=== PATIENT | male | born 1965 | race African-American/Black ===

== ENCOUNTER 2017-06-07 07:08 | Emergency (ER) | payer MEDICARE, MEDICAID ==
[2017-06-07 07:32] VITALS: BP 117/83
--- NOTE | 2017-06-07 09:35 | UC ---
Denise Lynn Jason, scribed for [facility] on 06/07/17 at 0809 . Complaint Male HPI - HPI Summary HPI Summary: In Room Note: This patient is a 51 year old M presenting to [facility] with a chief complaint of a pelvic bump since 3 years ago. The patient rates the pain 0/10 in severity. Symptoms aggravated by nothing. Symptoms alleviated by nothing. Patient denies pain, and N/V/D. Physicians Note: Vital signs stable, afebrile, pulse ox 100. Visit history: substance abuse issues, bipolar disorder, anemia. No known allergies. No known allergies. No prescription medications. Nurses Note: HAS A VISIBLE AND PALPABLE PUFFY LUMP ON HIS LOWER LEFT GROIN THAT HAS BEEN THERE FOR 2-3 YEARS THAT COMES AND GOES. NOT PAINFUL. DOES A LOT OF WALKING AND IS TRYING TO GET HEALTHY. WAS A FORMER CRACK ADDICT. LAST TIME HE USED WAS 6 YEARS AGO. ALSO FORMER MARUIJUA USER - LAST TIME WAS [address] NANI CHEN IS HIS PRIMARY CARE DOCTOR. WAS ON RESPIRDAL FOR DEPRESSION, SCHIZO- DISORDER BUT NO LONGER TAKES IT. HE IS ON OUTPATIENT TREATMENT FOR THIS. 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 - History of Current Complaint Chief Complaint: UCSkin Stated Complaint: SOFT TISUUE Time Seen by Provider: 06/07/17 07:25 Hx Obtained From: Patient Onset/Duration: Gradual Onset, Lasting Weeks - since 3 years, Still Present Timing: Constant Pain Intensity: 0 Pain Scale Used: 0-10 Numeric Location: Other - pelvic area Aggravating Factor(s): Nothing Alleviating Factor(s): Nothing Associated Signs And Symptoms: Positive: Negative - pelvic pain, N/V/D - Allergies/Home Medications Allergies/Adverse Reactions: Allergies Allergy/AdvReac Type Severity Reaction Status Date / Time No Known Allergies Allergy Verified 06/07/17 07:14 Home Medications: Home Medications NK [No Home Medications Reported] 06/07/17 [History Confirmed 06/07/17] PMH/Surg Hx/FS Hx/Imm Hx Previously Healthy: No Psychological History: Bipolar Disorder Other History Of: Negative For: Anticoagulant Therapy - Surgical History Surgical History: Yes Surgery Procedure, Year, and Place: LEFT KNEE SURGERY. APPENDICITIS. BROKEN JAW REPAIR - Family History Known Family History: Positive: Diabetes - in grandmother - Social History Alcohol Use: None Substance Use Type: None, Marijuana Substance Use Comment - Amount & Last Used: FORMER CRACK USER - 6 YEARS AGO. MARIJUANAN USE LASTN TIME WAS 2 YEARS AGO Smoking Status (MU): Former Smoker Type: Cigarettes Length of Time of Smoking/Using Tobacco: SMOKED WHEN HE WASN 8 YEARS OF AGE Household Exposure Type: Cigarettes - Immunization History Most Recent Influenza Vaccination: n/a Most Recent Tetanus Shot: "in the " Most Recent Pneumonia Vaccination: never Review of Systems Gastrointestinal: Negative - nausea, vomiting, diarrhea Genitourinary: Negative - pelvi pain, Other - pelvic All Other Systems Reviewed And Are Negative: Yes Physical Exam - Summary Physical Exam Summary: Appearance: The patient is well-appearing, is in no pain distress, and is well- nourished. Eyes: Conjunctiva are clear. ENT: The hearing is grossly normal, the pharynx is normal, and the TMs are normal. There is no muffled or hoarse voice. Neck: The neck is supple and there is no lymphadenopathy. Respiratory: The chest is nontender. The lungs are clear, there are normal breath sounds, and there is no respiratory distress. Cardiovascular: Heart is regular rate and rhythm. There is no murmur. Abdomen: The abdomen is soft and nontender. There is no organomegaly. Abd exam shows a well healed right lower quadrant, scar from appendectomy. There are no masses. There is a 3.5 cm soft, swelling above the medial 1/3rd of the inguinal ligament on the left. The swelling is non-tender to palpation and reducible, but returns. With patient supine, the left supra inguinal swelling disappears. When the patient sits up there is no appearance of this swelling. Testicular Exam: Examination of the testicles is normal, and shows no indirect hernias on each side. No other inguinal adenopathy noted. Bowel sounds: present Musculoskeletal: Strength is intact. The patient moves all extremities. Neurological: The patient is alert. Psychological: The patient displays age appropriate behavior Skin: Negative for rashes Triage Information Reviewed: Yes Vital Signs: Initial Vital Signs Temp 97.9 F 06/07/17 07:15 Pulse 68 06/07/17 07:15 Resp 16 06/07/17 07:15 BP 117/83 06/07/17 07:15 Pulse Ox 100 03/25/18 07:15 Vital Signs Reviewed: Yes Complaint Male Course/Dx - Course Course Of Treatment: 51 year old male with swelling in the area of the left inguinal area. This swelling was easily reducible, non- tender, and had a duration of 3 years. My differential is a lipoma vs a direct hernia. I spoke to the patient at length and told him I would write down my assessment and she should return to his PCP for evaluation and treatment as needed. Diagnosis: swelling, left lower abdomen: direct hernia vs. other. Patient is Urgent/ Emergent. BP elevated due to current condition w/o HTN in past medical history. Medications have been included in the original chart and reviewed. - Differential Dx/Diagnosis Provider Diagnoses: left randall-inguinal swelling: hernia vs. other Discharge - Sign-Out/Discharge Documenting (check all that apply): Discharge - Discharge Plan Condition: Stable Disposition: HOME Patient Education Materials: Inguinal Hernia (ED) Referrals: Nani Chen MD [Primary Care Provider] - Additional Instructions: WE DISCUSSED: You have a swelling in your groin area. This could be a hernia or just a bit of tissue or fat. Re-check with your doctor to review your condition and decide if any further tests or treatment need to be done. Call us for any increased pain or temperature. - Billing Disposition and Condition Condition: STABLE Disposition: HOME The documentation as recorded by the Denise downs Jason accurately reflects the service I personally performed and the decisions made by me, Chaim Ambrocio MD.
== END 2017-06-07 08:03 | disposition home or self-care (01) ==
LOC: UCEAST 07:08
DX: R19.04 Left lower quadrant abdominal swelling, mass and lump (principal); F31.9 Bipolar disorder, unspecified; Z87.891 Personal history of nicotine dependence
CPT/HCPCS: 99211; G0463

== ENCOUNTER 2017-07-20 09:21 | Emergency (ER) | payer MEDICARE, MEDICAID ==
[2017-07-20 09:51] VITALS: BP 115/83
--- NOTE | 2017-07-20 10:01 | UC ---
Skin Complaint HPI - HPI Summary HPI Summary: Pt presents with pain and swelling to the nail of his left 4th finger that started yesterday. Has been mildly draining at times. Denies fever or chills. - History of Current Complaint Chief Complaint: UCUpperExtremity Time Seen by Provider: 07/20/17 09:58 Stated Complaint: SWOLLEN FINGER TIP Hx Obtained From: Patient Onset/Duration: Sudden Onset Skin Exposure Onset/Duration: Days Ago Timing: Constant Onset Severity: Mild Current Severity: Mild Pain Intensity: 2 Pain Scale Used: 0-10 Numeric - Allergy/Home Medications Allergies/Adverse Reactions: Allergies Allergy/AdvReac Type Severity Reaction Status Date / Time No Known Allergies Allergy Verified 07/20/17 09:45 Review of Systems Constitutional: Negative Skin: Other - Finger redness and pain Respiratory: Negative Cardiovascular: Negative Neurovascular: Negative Musculoskeletal: Negative Neurological: Negative Psychological: Negative All Other Systems Reviewed And Are Negative: Yes PMH/Surg Hx/FS Hx/Imm Hx - Additional Past Medical History Additional PMH: None Other History Of: Negative For: Anticoagulant Therapy - Surgical History Surgical History: Yes Surgery Procedure, Year, and Place: LEFT KNEE SURGERY. APPENDICITIS. BROKEN JAW REPAIR - Family History Known Family History: Positive: Diabetes - in grandmother - Social History Lives: Alone Alcohol Use: None Substance Use Type: None Substance Use Comment - Amount & Last Used: FORMER CRACK USER - 6 YEARS AGO. Smoking Status (MU): Former Smoker Type: Cigarettes Length of Time of Smoking/Using Tobacco: SMOKED WHEN HE WASN 8 YEARS OF AGE Household Exposure Type: Cigarettes - Immunization History Most Recent Influenza Vaccination: n/a Most Recent Tetanus Shot: "in the " Most Recent Pneumonia Vaccination: never Physical Exam - Summary Physical Exam Summary: GENERAL: NAD. WDWN. No pain distress. SKIN: Left 4th finger: on the radial aspect of the nail-skin fold there is mild erythema, edema, and tenderness. Scant clear and yellow drainage. No streaking or bleeding. NECK: Supple. Nontender. No lymphadenopathy. CHEST: No accessory muscle use. Breathing comfortably and in no distress. CV: RRR. Without m/r/g. NEURO: Alert. CN II-XII grossly intact. PSYCH: Age appropriate behavior. Triage Information Reviewed: Yes Vital Signs: Initial Vital Signs Temp 97.9 F 07/20/17 09:45 Pulse 71 07/20/17 09:45 Resp 18 07/20/17 09:45 BP 115/83 07/20/17 09:45 Pulse Ox 100 07/20/17 09:45 Course/Dx - Course Course Of Treatment: Left 4th finger paronychia. Keflex. - Diagnoses Provider Diagnoses: left 4th finger paronychia Discharge - Sign-Out/Discharge Documenting (check all that apply): Discharge/Admit/Transfer - Discharge Plan Condition: Stable Disposition: HOME Prescriptions: Cephalexin CAP* [Keflex CAP*] 250 mg PO BID #10 cap Patient Education Materials: Paronychia (ED) Referrals: Nani Guerra MD [Primary Care Provider] - Additional Instructions: If you develop a fever, shortness of breath, chest pain, new or worsening symptoms - please call your PCP or go to the ED. - Billing Disposition and Condition Condition: STABLE Disposition: HOME
== END 2017-07-20 10:22 | disposition home or self-care (01) ==
LOC: UCEAST 09:21
DX: L03.012 Cellulitis of left finger (principal); Z87.891 Personal history of nicotine dependence
CPT/HCPCS: 99212; G0463

== ENCOUNTER 2017-08-13 14:42 | Emergency (ER) | payer MEDICARE, MEDICAID ==
[2017-08-13 14:55] VITALS: BP 127/72
--- NOTE | 2017-08-13 15:17 | UC ---
Skin Complaint HPI - HPI Summary HPI Summary: 51 yo male presents with left 4th digit ?infection. I saw him for this same issue about 1 month ago. Denies redness, drainage, pain, swelling, fever, or chills. - History of Current Complaint Chief Complaint: UCSkin Time Seen by Provider: 08/13/17 15:17 Stated Complaint: L RINGER FINGER Hx Obtained From: Patient Current Severity: None Pain Intensity: 0 Pain Scale Used: 0-10 Numeric - Allergy/Home Medications Allergies/Adverse Reactions: Allergies Allergy/AdvReac Type Severity Reaction Status Date / Time No Known Allergies Allergy Verified 08/13/17 14:55 Home Medications: Home Medications NK [No Home Medications Reported] 08/13/17 [History Confirmed 08/13/17] Review of Systems Constitutional: Negative Skin: Other - Left 4th digit ingrown nail Respiratory: Negative Cardiovascular: Negative Neurovascular: Negative Neurological: Negative Psychological: Negative All Other Systems Reviewed And Are Negative: Yes PMH/Surg Hx/FS Hx/Imm Hx - Additional Past Medical History Additional PMH: None Previously Healthy: Yes Other History Of: Negative For: Anticoagulant Therapy - Surgical History Surgical History: Yes Surgery Procedure, Year, and Place: LEFT KNEE SURGERY. APPENDICITIS. BROKEN JAW REPAIR - Family History Known Family History: Positive: Diabetes - in grandmother - Social History Lives: Alone Alcohol Use: None Substance Use Type: None Substance Use Comment - Amount & Last Used: FORMER CRACK USER - 6 YEARS AGO. Smoking Status (MU): Former Smoker Type: Cigarettes Length of Time of Smoking/Using Tobacco: SMOKED WHEN HE WASN 8 YEARS OF AGE Household Exposure Type: Cigarettes - Immunization History Most Recent Influenza Vaccination: n/a Most Recent Tetanus Shot: "in the " Most Recent Pneumonia Vaccination: never Physical Exam - Summary Physical Exam Summary: GENERAL: NAD. WDWN. No pain distress. SKIN: Left 4th digit: Nail appears normal. No erythema, edema, or tenderness. No streaking, bleeding, or drainage. NECK: Supple. Nontender. No lymphadenopathy. CHEST: No accessory muscle use. Breathing comfortably and in no distress. CV: RRR. Without m/r/g. NEURO: Alert. CN II-XII grossly intact. PSYCH: Age appropriate behavior. Triage Information Reviewed: Yes Vital Signs: Initial Vital Signs Temp 98.6 F 08/13/17 14:50 Pulse 76 08/13/17 14:50 Resp 18 08/13/17 14:50 BP 127/72 08/13/17 14:50 Pulse Ox 100 08/13/17 14:50 Course/Dx - Course Course Of Treatment: Left 4th digit appears normal. No treatment at this time. - Diagnoses Provider Diagnoses: Left 4th digit ingrown nail Discharge - Sign-Out/Discharge Documenting (check all that apply): Discharge/Admit/Transfer - Discharge Plan Condition: Stable Disposition: HOME Referrals: Nani Guerra MD [Primary Care Provider] - Additional Instructions: If you develop a fever, shortness of breath, chest pain, new or worsening symptoms - please call your PCP or go to the ED. - Billing Disposition and Condition Condition: STABLE Disposition: HOME
== END 2017-08-13 15:30 | disposition home or self-care (01) ==
LOC: UCEAST 14:42
DX: L60.0 Ingrowing nail (principal); Z83.3 Family history of diabetes mellitus; Z87.891 Personal history of nicotine dependence
CPT/HCPCS: 99201; G0463

== ENCOUNTER 2018-05-04 07:18 | Emergency (ER) | payer MEDICARE, MEDICAID ==
[2018-05-04 07:31] VITALS: BP 118/75
--- NOTE | 2018-05-04 07:56 | UC ---
Head Injury HPI - HPI Summary HPI Summary: SLIPPED AND FELL ABOUT A WEEK AGO. STRUCK RIGHT FOREHEAD ON THE GROUND. PT UNCLEAR IF LOC OR NOT. HAS H/O MENTAL ILLNESS - NOT CURRENTLY TAKING MEDS. STATES HE WAS CONCERNED ABOUT HOW FAST THE BUMP ON HIS HEAD WENT AWAY. DENIES BOLTON , DIZZINESS, NAUSEA, VISUAL DISTURBANCE. - History Of Current Complaint Chief Complaint: UCHeadInjury Stated Complaint: HEAD INJURY Time Seen by Provider: 05/04/18 07:36 Hx Obtained From: Patient Onset/Duration: Sudden Onset, Lasting Days, Resolved Severity Currently: None Severity Initially: Moderate Pain Intensity: 0 Pain Scale Used: 0-10 Numeric Aggravating Factor(s): Nothing Alleviating Factor(s): Nothing Associated Signs And Symptoms: Negative: Confusion, Neck Pain, Nausea, Vomiting - Allergies/Home Medications Allergies/Adverse Reactions: Allergies Allergy/AdvReac Type Severity Reaction Status Date / Time No Known Allergies Allergy Verified 05/04/18 07:31 PMH/Surg Hx/FS Hx/Imm Hx Endocrine History: Diabetes Other Psychological History: "MENTAL ILLNESS" Other History Of: Negative For: Anticoagulant Therapy - Surgical History Surgical History: Yes Surgery Procedure, Year, and Place: LEFT KNEE SURGERY. APPENDICITIS. BROKEN JAW REPAIR - Family History Known Family History: Positive: Diabetes - in grandmother - Social History Alcohol Use: None Substance Use Type: None Substance Use Comment - Amount & Last Used: FORMER CRACK USER - 6 YEARS AGO. Smoking Status (MU): Former Smoker Type: Cigarettes Length of Time of Smoking/Using Tobacco: SMOKED WHEN HE WASN 8 YEARS OF AGE Household Exposure Type: Cigarettes - Immunization History Most Recent Influenza Vaccination: n/a Most Recent Tetanus Shot: "in the " Most Recent Pneumonia Vaccination: never Review of Systems All Other Systems Reviewed And Are Negative: Yes Constitutional: Positive: Negative Skin: Positive: Other - DISCOLORATION RIGHT FOREHEAD Respiratory: Positive: Negative Cardiovascular: Positive: Negative Gastrointestinal: Positive: Negative Musculoskeletal: Positive: Negative Neurological: Positive: Negative Physical Exam Triage Information Reviewed: Yes Appearance: Well-Appearing, No Pain Distress Vital Signs: Initial Vital Signs Temp 98.1 F 05/04/18 07:26 Pulse 88 05/04/18 07:26 Resp 18 05/04/18 07:26 BP 118/75 05/04/18 07:26 Pulse Ox 100 05/04/18 07:26 Vital Signs Reviewed: Yes Eyes: Positive: Conjunctiva Clear, Other: - PERRL, EOMI ENT: Positive: Hearing grossly normal, Pharynx normal, TMs normal Neck: Positive: Supple, Nontender, No Lymphadenopathy Respiratory Exam: Normal Cardiovascular Exam: Normal Abdomen Description: Positive: Soft Musculoskeletal: Positive: No Edema Neurological: Positive: Alert, Other: - CN II-XII GROSSLY INTACT BILATERALLY. RAPID ALTERNATING MOVEMENTS INTACT. NEG PRONATOR DRIFT. NEG ROMBERG. 5/5 STRENGTH. HEEL TO GARCIA INTACT BILATERALLY. TANDEM GAIT INTACT. FINGER TO NOSE INTACT. Psychological: Positive: Age Appropriate Behavior Skin: Positive: Other - QUARTER SIZED HYPERPIGMENTED AREA OF SKIN AT SITE OF REPORTED IMPACT RIGHT FOREHEAD. NOT TENDER. NO DEFORMITY. Negative: Rashes Head Injury Course/Dx - Course Course Of Treatment: NORMAL EXAM. PT DENIES ANY RESIDUAL SYMPTOMS. STATES HE WAS JUST CONCERNED WITH HOW QUICKLY THE BUMP ON HIS HEAD WENT AWAY. STATES HE HAD A SIMILAR BUMP ON HIS HEAD YEARS AGO AND IT STAYED MUCH LONGER SO HE WAS CONCERNED THAT THIS ONE WENT AWAY TOO FAST. NO INDICATION FOR ACUTE INTERVENTION TODAY. TO ER IF SX WORSEN. - Differential Dx/Diagnosis Provider Diagnosis: Head injury Discharge - Sign-Out/Discharge Documenting (check all that apply): Patient Departure All imaging exams completed and their final reports reviewed: No Studies - Discharge Plan Condition: Stable Disposition: HOME Patient Education Materials: Head Injury (ED) Referrals: Nani Guerra MD [Primary Care Provider] - If Needed Additional Instructions: PHYSICAL AND NEURO EXAM TODAY UNREMARKABLE. YOU SEEM TO HAVE RECOVERED FROM YOUR HEAD INJURY. NO INDICATION FOR ANY ACUTE INTERVENTION TODAY. GO TO THE ED WITHOUT FAIL IF YOU DEVELOP UNEQUAL PUPILS, VISUAL DISTURBANCE, GAIT INSTABILITY, SPEECH DIFFICULTY, NAUSEA/VOMITING, WORSENING HEADACHE, DIZZINESS, CONFUSION, WEAKNESS OR ANY OTHER CONCERNING SYMPTOMS. - Billing Disposition and Condition Condition: STABLE Disposition: Home
== END 2018-05-04 07:50 | disposition home or self-care (01) ==
LOC: UCEAST 07:18
DX: S09.90XA Unspecified injury of head, initial encounter (principal); Z87.891 Personal history of nicotine dependence; E11.9 Type 2 diabetes mellitus without complications; W22.8XXA Striking against or struck by other objects, initial encounter; Y92.9 Unspecified place or not applicable
CPT/HCPCS: 99211; G0463

== ENCOUNTER 2018-05-05 12:23 | Inpatient (IN) | payer MEDICARE, MEDICAID ==
[2018-05-05] MEDS ORDERED: Nicotine Inhaler* 10 MG AMP INH PRN (12:36)
[2018-05-05] MEDS ORDERED: LORazepam TAB(*) 1 MG PO PRN ×2 (12:36→14:48)
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
[2018-05-05 13:02] LABS: Urine Appearance Clear; Urine Bilirubin Negative (Negative); Urine Blood Negative (Negative); Urine Color Yellow; Urine Glucose Negative (Negative); Urine Ketones Negative (Negative); Urine Nitrite Negative (Negative); Urine Protein Negative (Negative); Urine Specific Gravity 1.036 (1.010-1.030); Urine Urobilinogen Negative (Negative)
[2018-05-05] MEDS ORDERED: Mouth Piece, Nicotine* 1 EACH CARTRIDGE INH PRN (13:22)
[2018-05-05 13:26] LABS: Barbiturates Urine Screen None Detected (None Detect); Benzodiazepine Urine Screen None Detected (None Detect); Urine Cannabinoids Screen None Detected (None Detect)
[2018-05-05] MEDS ORDERED: Al Hydrox/Mg Hydrox/Simet LIQ* 30 ML UDC PO PRN (14:47)
[2018-05-05] MEDS ORDERED: Acetaminophen TAB* 325 MG PO PRN (14:47)
[2018-05-05] MEDS ORDERED: Haloperidol TAB* 5 MG PO PRN (14:48)
[2018-05-05] MEDS ORDERED: diPHENhydraMINE PO* 50 MG PO PRN (14:49)
[2018-05-06 08:10] LABS: ABS Basophils 0 10^3/ul (0-0.2); ABS Eosinophils 0.1 10^3/ul (0-0.6); ABS Lymphocytes 2.1 10^3/ul (1.0-4.8); ABS Monocytes 0.5 10^3/ul (0-0.8); ABS Nucleated RBC 0 10^3/ul; Eosinophil % 2.2 %; Hematocrit 40 % (42-52); Hemoglobin 12.3 g/dl (14.0-18.0); Mean Corpuscular HGB Conc 31 g/dl (31-36); Mean Corpuscular Hemoglobin 23 pg (27-31); Mean Corpuscular Volume 75 fL (80-94); Mean Platelet Volume 8.3 fL (7.4-10.4); Nucleated Red Blood Cells % 0.1; Platelet Count 279 10^3/ul (150-450); Red Blood Count 5.32 10^6/ul (4.00-5.40); Red Cell Distribution Width 15 % (10.5-15); White Blood Count 4.8 10^3/ul (3.5-10.8)
[2018-05-06 08:47] LABS: Albumin 4.4 g/dL (3.2-5.2); Anion Gap 4 mmol/L (2-11); CO2 Carbon Dioxide 30 mmol/L (22-32); Calcium 9.6 mg/dL (8.6-10.3); Chloride 103 mmol/L (101-111); Potassium 4.4 mmol/L (3.5-5.0); Sodium 137 mmol/L (135-145)
[2018-05-06 08:53] LABS: ALT 11 U/L (7-52); AST 16 U/L (13-39); Albumin/Globulin Ratio 1.4 (1-3); Alkaline Phosphatase 49 U/L (34-104); BUN/Creatinine Ratio 15.5 (8-20); Blood Urea Nitrogen 13 mg/dL (6-24); Cholesterol 173 mg/dL; EGFR African American 115.2 (>60); EGFR Non-African American 95.2 (>60); Globulin 3.2 g/dL (2-4); Glucose 97 mg/dL (70-100); HDL Cholesterol 64.1 mg/dL; LDL Cholesterol 95 mg/dL; Total Protein 7.6 g/dL (6.4-8.9); Triglycerides 70 mg/dL
[2018-05-06 09:04] LABS: Alcohol < 10 mg/dL (<10)
[2018-05-06 09:19] LABS: TSH (Thyroid Stimulating Horm) 1.41 mcIU/mL (0.34-5.60)
--- NOTE | 2018-05-06 11:34 | HP ---
H&P (Free Text) History and Physical: Justification for admission: Immediate Safety. CC " You are so dumb" The patient was brought to [facility] by police after threatening staff from ACT team, screaming he is the son of God. Denied access to firearms and or stockpiles of medications. He said that he got into a argument with a lady at [facility] ACT team. He reported that he doesnt sleep and doesnt want to be bothered by people. He reports that women is trying to make false charges against him and that society has been against him and used and abused him. He reports people after him out to get him. He reported that haldol killed his sister and when asked about her diagnosis screamed you are so dumb and do not listen, and stormed into his room refusing to answer any further questions. A psychiatric review of systems was unable to be performed due to lack of participation of the patient. PAST PSYCHIATRIC HISTORY: Prior Diagnosis : Schizophrenia History of past Psychiatric Hospitalizations: Multiple hospitalizations last admission in 2016. Prior state hospitalization to [facility] in 2013 History of past suicide/homicide attempts : Denied past suicide attempts. Denied past homicidal incidents. Outpatient follow-up: [facility] ACT team. Dr. Velasco Medications: Past trials of medications include Haldol 10mg qhs and 5mg qam. Cogentin and Haldol deconate 150mg q4 weeks. Risperdal M tab 2mg qam and 4mg bedtime. Has not taken medications in 2 years. FAMILY HISTORY: - Suicide: Denied family history of suicide. - Mental illness: Denied per patient his sister was taking haldol and ( unconfirmed) - Substance abuse: Denied substance abuse among family members. SUBSTANCE ABUSE HISTORY: Denied using alcohol, tobacco, heroin and cocaine other illicit substances in the last year. Denied abusing pills not prescribed . Reported using crack cocaine in the past with the last use 7 years ago. SOCIAL HISTORY: Patient refused to answer questions about childhood and prior employment - Education: Some college - Living situation: Lives in apartment alone - Relationship: Single - Legal history: Reports pending charges for assault PAST MEDICAL HISTORY: Denied heart disease, cancer and/ or other medical conditions. Laboratory results show pre diabetes. - Allergies: Denied drug or other allergies. Physical Exam: Please see ED note Mental Status Exam on Admission APPEARANCE : 52 year old who appears stated age. Patient is not malodourous, and appears to have fair hygiene and grooming. BEHAVIOR: Irritable EYE CONTACT: Fair PSYCHOMOTOR ACTIVITY: No psychomotor agitation or retardation. MOVEMENTS: No abnormal movements observed. SPEECH : Pressured MOOD : "Mad " AFFECT : Agitated THOUGHT PROCESS: Illogical,and disorganized THOUGHT CONTENT: Paranoid delusions PERCEPTION: Doesnt appear to be responding to internal cues. SUICIDALITY Denied suicidal ideation, intent or plan. HOMICIDALITY Denied homicidal ideation, intent or plan. ORIENTATION: Oriented to self, location, and time. Insight/judgment: Poor insight and judgment. Impulsive with low frustration tolerance Diagnosis on Admission: Schizoaffective disorder bipolar type Assessment: 52year old with history of multiple hospitalizations came to the hospital and was admitted to the BSU at [facility]. Plan # Justification for Admission: For immediate safety per outlined in the [facility] Hygiene Code. # 9.39 The patient requires inpatient admission at this time to assure safety, receive treatment and work toward stabilization. # Labs ordered: CBC, CMP, UDS, TSH, HbA1c, TSH, EKG #Admit to BSU, Q15 minute observation. Start regular diet. Encourage participation in activities on the milieu. # Obtain collateral from ACT team #Patient evaluated in ED and was determined by the emergency room Physician to be medically stable for admission to the BSU. # Collaboration with Social Work to work toward discharge planning. Start Abilify 5mg po daily Start Ativan 1mg qhs Medicine team contacted about HBA1C 6.4 and recommend metformin 500mg PO daily and outpatient PCP follow up. Medicine consulted to review abnormal EKG. #Goals before discharge include: Increase medication compliance and improve mood stabilization The risks, benefits, and alternative treatment options were discussed as well as of the risks of refusing treatment. After this discussion and an acknowledgement of this understanding was made. A risk benefit assessment of treatment was considered and discussed with the patient. When comparing the risks of treatment with the dangers of current clinical presentation. The benefits of treatment outweigh the treatment risks at this time. Risks of behavioral changes, Serotonin syndrome, metabolic risks and NMS were among some of the risks discussed. Vital Signs Temp Pulse Resp BP Pulse Ox 98.6 F 68 16 137/91 98 05/06/18 08:11 05/06/18 08:11 05/06/18 08:11 05/06/18 08:11 05/06/18 08:11 Laboratory Results - last 24 hr 05/06/18 05/06/18 05/06/18 07:52 07:52 07:52 WBC 4.8 RBC 5.32 Hgb 12.3 L Hct 40 L MCV 75 L MCH 23 L MCHC 31 RDW 15 Plt Count 279 MPV 8.3 Neut % (Auto) 41.2 Lymph % (Auto) 45.0 [place] % (Auto) 10.8 Eos % (Auto) 2.2 Baso % (Auto) 0.8 Absolute Neuts (auto) 2.0 Absolute Lymphs (auto) 2.1 Absolute Monos (auto) 0.5 Absolute Eos (auto) 0.1 Absolute Basos (auto) 0 Absolute Nucleated RBC 0 Nucleated RBC % 0.1 Sodium 137 Potassium 4.4 Chloride 103 Carbon Dioxide 30 Anion Gap 4 BUN 13 Creatinine 0.84 Est GFR ( Amer) 115.2 Est GFR (Non-Af Amer) 95.2 BUN/Creatinine Ratio 15.5 Glucose 97 Hemoglobin A1c 6.4 H Calcium 9.6 Total Bilirubin 0.40 AST 16 ALT 11 Alkaline Phosphatase 49 Total Protein 7.6 Albumin 4.4 Globulin 3.2 Albumin/Globulin Ratio 1.4 Triglycerides 70 Cholesterol 173 LDL Cholesterol 95 HDL Cholesterol 64.1 TSH 1.41 Serum Alcohol < 10
[2018-05-06] MEDS: ARIPiprazole TAB* 5 MG PO SCH (13:12)
[2018-05-06] MEDS: metFORMIN* 500 MG TAB PO SCH (13:12)
[2018-05-06] MEDS: LORazepam TAB(*) 1 MG PO SCH ×2 (21:34→21:40)
--- NOTE | 2018-05-07 08:45 | PN ---
Subjective - Subjective Date of Service: 05/07/18 Service Type: 55413 Hosp care 35 min high complexity Subjective: Nursing Report: Patient was visible on unit, but mostly in this room, no chemical restraints or PRNs. Slept overnight without incident. NOT Attending group activities. CC: " Patient was seen and evaluated in his room. He spoke about how he can not save everyone from the revolution that is coming to kill everyone. The patient reported that the world is coming to an end. He reported that he will not take medications and has been refusing mediation. Patient remembered that he had court today. He reported that he wants to be left alone and doesnt want to talk anymore. He spoke about the importance of speaking to women and children. He reported having an adequate appetite and sleep. Per nursing he was observed responding to internal stimuli. . Objective - Appearance Dysmorphic Features: No Hygiene: Normal Grooming: Fairly Well Kept - Behavior Psychomotor Activities: Normal Exhibits Abnormal Movement: No - Attitude and Relatedness Attitude and Relatedness: Irritable Eye Contact: Fair - Speech Quality: Pressured Latencies: Short Quantity: Copious - Mood Patient's Decription of Mood: "Irritable" - Affect Observed Affect: Constricted Affect Consistent with: Euphoria - Thought Process Patient's Thought Process: Disorganized Thought Content: No Passive Wish, No Suicidal Planning, No Homicidal Ideation, No Paranoid Ideation - Sensorium Experiencing Hallucinations: Yes Type of Hallucinations: Visual: No, Auditory: Yes - denied but appears to be responding to internal stimuli , Command: Yes - Level of Consciousness Level of Consciousness: Alert Orientation: Yes Intact, Yes Orientated to Time, Yes Orientated to Place, Yes Orientated to Person - Impulse Control Impulse Control: Impaired - Insight and Judgement Insight and Judgement: Impaired - Group Participation Particating in Group Activities: No - Medication Management Medication Management Adherence: No Assessment - Assessment Merits Inpatient Hospitalization: For Immediate Safety Clinical Impression: 52 year old Male with a history of schizoaffective disorder is medication non compliant and currently showing signs of decompensation. Plan - Plan Treatment Plan: Name: HILLARY SANCHEZ Birthdate: 1965 [id number] Plan #The patient requires inpatient admission at this time to assure safety, receive treatment and work toward stabilization. #Patient refusing medication will begin process of treatment over objection on Thursday if medication compliance continues to be a issue #Continue Abilify 5mg po daily #Continue Ativan 1mg qhs #Continue metformin 500mg PO daily #Goals before discharge include: Increase medication compliance and improve mood stabilization The risks, benefits, and alternative treatment options were discussed as well as of the risks of refusing treatment. When comparing the risks of treatment with the dangers of current clinical presentation. The benefits of treatment outweigh the treatment risks at this time. 05/05/18 05/05/18 05/06/18 12:50 12:50 07:52 WBC 4.8 RBC 5.32 Hgb 12.3 L Hct 40 L MCV 75 L MCH 23 L MCHC 31 RDW 15 Plt Count 279 MPV 8.3 Neut % (Auto) 41.2 Lymph % (Auto) 45.0 [place] % (Auto) 10.8 Eos % (Auto) 2.2 Baso % (Auto) 0.8 Absolute Neuts (auto) 2.0 Absolute Lymphs (auto) 2.1 Absolute Monos (auto) 0.5 Absolute Eos (auto) 0.1 Absolute Basos (auto) 0 Absolute Nucleated RBC 0 Nucleated RBC % 0.1 Sodium Potassium Chloride Carbon Dioxide Anion Gap BUN Creatinine Est GFR ( Amer) Est GFR (Non-Af Amer) BUN/Creatinine Ratio Glucose Hemoglobin A1c Calcium Total Bilirubin AST ALT Alkaline Phosphatase Total Protein Albumin Globulin Albumin/Globulin Ratio Triglycerides Cholesterol LDL Cholesterol HDL Cholesterol TSH Urine Color Yellow Urine Appearance Clear Urine pH 6.0 Ur Specific [place] 1.036 H Urine Protein Negative Urine Ketones Negative Urine Blood Negative Urine Nitrate Negative Urine Bilirubin Negative Urine Urobilinogen Negative Ur Leukocyte Esterase Negative Urine Glucose Negative Urine Ascorbic Acid * A Urine Opiates Screen None detected Ur Barbiturates Screen None detected Ur Phencyclidine Scrn None detected Ur Amphetamines Screen None detected U Benzodiazepines Scrn None detected Urine Cocaine Screen None detected U Cannabinoids Screen None detected Serum Alcohol 05/06/18 05/06/18 07:52 07:52 WBC RBC Hgb Hct MCV MCH MCHC RDW Plt Count MPV Neut % (Auto) Lymph % (Auto) [place] % (Auto) Eos % (Auto) Baso % (Auto) Absolute Neuts (auto) Absolute Lymphs (auto) Absolute Monos (auto) Absolute Eos (auto) Absolute Basos (auto) Absolute Nucleated RBC Nucleated RBC % Sodium 137 Potassium 4.4 Chloride 103 Carbon Dioxide 30 Anion Gap 4 BUN 13 Creatinine 0.84 Est GFR ( Amer) 115.2 Est GFR (Non-Af Amer) 95.2 BUN/Creatinine Ratio 15.5 Glucose 97 Hemoglobin A1c 6.4 H Calcium 9.6 Total Bilirubin 0.40 AST 16 ALT 11 Alkaline Phosphatase 49 Total Protein 7.6 Albumin 4.4 Globulin 3.2 Albumin/Globulin Ratio 1.4 Triglycerides 70 Cholesterol 173 LDL Cholesterol 95 HDL Cholesterol 64.1 TSH 1.41 Urine Color Urine Appearance Urine pH Ur Specific [place] Urine Protein Urine Ketones Urine Blood Urine Nitrate Urine Bilirubin Urine Urobilinogen Ur Leukocyte Esterase Urine Glucose Urine Ascorbic Acid Urine Opiates Screen Ur Barbiturates Screen Ur Phencyclidine Scrn Ur Amphetamines Screen U Benzodiazepines Scrn Urine Cocaine Screen U Cannabinoids Screen Serum Alcohol < 10 Laboratory Tests 05/05/18 05/05/18 05/06/18 12:50 12:50 07:52 WBC 4.8 RBC 5.32 Hgb 12.3 L Hct 40 L MCV 75 L MCH 23 L MCHC 31 RDW 15 Plt Count 279 MPV 8.3 Neut % (Auto) 41.2 Lymph % (Auto) 45.0 [place] % (Auto) 10.8 Eos % (Auto) 2.2 Baso % (Auto) 0.8 Absolute Neuts (auto) 2.0 Absolute Lymphs (auto) 2.1 Absolute Monos (auto) 0.5 Absolute Eos (auto) 0.1 Absolute Basos (auto) 0 Absolute Nucleated RBC 0 Nucleated RBC % 0.1 Sodium Potassium Chloride Carbon Dioxide Anion Gap BUN Creatinine Est GFR ( Amer) Est GFR (Non-Af Amer) BUN/Creatinine Ratio Glucose Hemoglobin A1c Calcium Total Bilirubin AST ALT Alkaline Phosphatase Total Protein Albumin Globulin Albumin/Globulin Ratio Triglycerides Cholesterol LDL Cholesterol HDL Cholesterol TSH Urine Color Yellow Urine Appearance Clear Urine pH 6.0 Ur Specific [place] 1.036 H Urine Protein Negative Urine Ketones Negative Urine Blood Negative Urine Nitrate Negative Urine Bilirubin Negative Urine Urobilinogen Negative Ur Leukocyte Esterase Negative Urine Glucose Negative Urine Ascorbic Acid * A Urine Opiates Screen None detected Ur Barbiturates Screen None detected Ur Phencyclidine Scrn None detected Ur Amphetamines Screen None detected U Benzodiazepines Scrn None detected Urine Cocaine Screen None detected U Cannabinoids Screen None detected Serum Alcohol 05/06/18 05/06/18 07:52 07:52 WBC RBC Hgb Hct MCV MCH MCHC RDW Plt Count MPV Neut % (Auto) Lymph % (Auto) [place] % (Auto) Eos % (Auto) Baso % (Auto) Absolute Neuts (auto) Absolute Lymphs (auto) Absolute Monos (auto) Absolute Eos (auto) Absolute Basos (auto) Absolute Nucleated RBC Nucleated RBC % Sodium 137 Potassium 4.4 Chloride 103 Carbon Dioxide 30 Anion Gap 4 BUN 13 Creatinine 0.84 Est GFR ( Amer) 115.2 Est GFR (Non-Af Amer) 95.2 BUN/Creatinine Ratio 15.5 Glucose 97 Hemoglobin A1c 6.4 H Calcium 9.6 Total Bilirubin 0.40 AST 16 ALT 11 Alkaline Phosphatase 49 Total Protein 7.6 Albumin 4.4 Globulin 3.2 Albumin/Globulin Ratio 1.4 Triglycerides 70 Cholesterol 173 LDL Cholesterol 95 HDL Cholesterol 64.1 TSH 1.41 Urine Color Urine Appearance Urine pH Ur Specific [place] Urine Protein Urine Ketones Urine Blood Urine Nitrate Urine Bilirubin Urine Urobilinogen Ur Leukocyte Esterase Urine Glucose Urine Ascorbic Acid Urine Opiates Screen Ur Barbiturates Screen Ur Phencyclidine Scrn Ur Amphetamines Screen U Benzodiazepines Scrn Urine Cocaine Screen U Cannabinoids Screen Serum Alcohol < 10 Vital Signs Temp 97.2 F 05/07/18 07:38 Pulse 60 05/07/18 07:38 Resp 12 05/07/18 07:38 BP 135/90 05/07/18 07:38 Pulse Ox 100 05/07/18 07:38 Continued Medication Management: Start Medication Medications: Current Medications Acetaminophen (Tylenol Tab*) 650 mg PO Q4H PRN PRN Reason: for pain; or Temp >101 F Al Hydrox/Mg Hydrox/Simethicone (Maalox Plus*) 30 ml PO Q4H PRN PRN Reason: INDIGESTION Aripiprazole (Abilify Tab*) 5 mg PO DAILY [facility] Last Admin: 05/06/18 13:12 Dose: Not Given Diphenhydramine HCl (Benadryl Po*) 50 mg PO Q6H PRN PRN Reason: AGITATION Haloperidol (Haldol Tab*) 5 mg PO Q6H PRN PRN Reason: AGITATION Lorazepam (Ativan Tab(*)) 1 mg PO Q4H PRN PRN Reason: ANXIETY Lorazepam (Ativan Tab(*)) 2 mg PO Q6H PRN PRN Reason: ANXIETY Lorazepam (Ativan Tab(*)) 1 mg PO 2100 [facility] Last Admin: 05/06/18 21:40 Dose: Not Given Metformin HCl (Glucophage*) 500 mg PO DAILY [facility] Last Admin: 05/06/18 13:12 Dose: Not Given - Discharge Plan Discharge Plan: Inpatient Hospitalization
[2018-05-07] MEDS: metFORMIN* 500 MG TAB PO SCH (10:46)
[2018-05-07] MEDS: ARIPiprazole TAB* 5 MG PO SCH (10:46)
[2018-05-07] MEDS: LORazepam TAB(*) 1 MG PO SCH (20:57)
[2018-05-08] MEDS: metFORMIN* 500 MG TAB PO SCH (10:18)
[2018-05-08] MEDS: ARIPiprazole TAB* 5 MG PO SCH (10:18)
[2018-05-08] MEDS: LORazepam TAB(*) 1 MG PO SCH (20:45)
[2018-05-09] MEDS: ARIPiprazole TAB* 5 MG PO SCH (10:26)
[2018-05-09] MEDS: metFORMIN* 500 MG TAB PO SCH (10:26)
--- NOTE | 2018-05-09 18:32 | PN ---
Subjective - Subjective Date of Service: 05/08/18 Service Type: 06851 Hosp care 25 min moderate complexity Subjective: No change in hillary's mental status. He continues to be disorganized in his thoughts, rambling, pressured and illogical. Says his psychiatrist who years ago told him he doesn't need to take medicine anymore. He will fight only when anyone attacks him. In his room all the time talking to self but denies hearing voices or seeing things. Like always he is an unreliable historian and should be medicated ( TOO ) before he starts to become physically aggressive. Objective - Appearance Appearance: Healthy Appearing, Thin Framed Dysmorphic Features: No Hygiene: Normal Grooming: Disheveled - Behavior Psychomotor Activities: Abnormal-Increased Exhibits Abnormal Movement: No - Attitude and Relatedness Attitude and Relatedness: Dismissive Eye Contact: Fair - Speech Quality: Pressured Latencies: Short Quantity: Copious - Mood Patient's Decription of Mood: "Fine" - Affect Observed Affect: Tense Affect Consistent with: Dysphoria - Thought Process Patient's Thought Process: Coherent, Loose Associations, Tangential, Filght of Ideas, Over Inclusive Thought Content: Yes Paranoid Ideation, No Passive Wish, No Suicidal Planning, No Homicidal Ideation - Sensorium Type of Hallucinations: Visual: No, Auditory: Yes, Command: Yes - Level of Consciousness Level of Consciousness: Alert Orientation: Yes Intact, Yes Orientated to Time, Yes Orientated to Place, Yes Orientated to Person - Impulse Control Impulse Control: Poor - Insight and Judgement Insight and Judgement: Impaired - Group Participation Particating in Group Activities: No - Medication Management Medication Management Adherence: No Assessment - Assessment Merits Inpatient Hospitalization: For Immediate Safety, For Stabilization Clinical Impression: 52 year old Male with a history of schizoaffective disorder is medication non compliant and currently showing signs of decompensation. Plan - Plan Treatment Plan: Name: HILLARY SANCHEZ Birthdate: 1965 [id number] Plan #The patient requires inpatient admission at this time to assure safety, receive treatment and work toward stabilization. #Patient refusing medication will begin process of treatment over objection on Thursday if medication compliance continues to be a issue #Continue Abilify 5mg po daily #Continue Ativan 1mg qhs #Continue metformin 500mg PO daily #Goals before discharge include: Increase medication compliance and improve mood stabilization The risks, benefits, and alternative treatment options were discussed as well as of the risks of refusing treatment. When comparing the risks of treatment with the dangers of current clinical presentation. The benefits of treatment outweigh the treatment risks at this time. 05/05/18 05/05/18 05/06/18 12:50 12:50 07:52 WBC 4.8 RBC 5.32 Hgb 12.3 L Hct 40 L MCV 75 L MCH 23 L MCHC 31 RDW 15 Plt Count 279 MPV 8.3 Neut % (Auto) 41.2 Lymph % (Auto) 45.0 [place] % (Auto) 10.8 Eos % (Auto) 2.2 Baso % (Auto) 0.8 Absolute Neuts (auto) 2.0 Absolute Lymphs (auto) 2.1 Absolute Monos (auto) 0.5 Absolute Eos (auto) 0.1 Absolute Basos (auto) 0 Absolute Nucleated RBC 0 Nucleated RBC % 0.1 Sodium Potassium Chloride Carbon Dioxide Anion Gap BUN Creatinine Est GFR ( Amer) Est GFR (Non-Af Amer) BUN/Creatinine Ratio Glucose Hemoglobin A1c Calcium Total Bilirubin AST ALT Alkaline Phosphatase Total Protein Albumin Globulin Albumin/Globulin Ratio Triglycerides Cholesterol LDL Cholesterol HDL Cholesterol TSH Urine Color Yellow Urine Appearance Clear Urine pH 6.0 Ur Specific [place] 1.036 H Urine Protein Negative Urine Ketones Negative Urine Blood Negative Urine Nitrate Negative Urine Bilirubin Negative Urine Urobilinogen Negative Ur Leukocyte Esterase Negative Urine Glucose Negative Urine Ascorbic Acid * A Urine Opiates Screen None detected Ur Barbiturates Screen None detected Ur Phencyclidine Scrn None detected Ur Amphetamines Screen None detected U Benzodiazepines Scrn None detected Urine Cocaine Screen None detected U Cannabinoids Screen None detected Serum Alcohol 05/06/18 05/06/18 07:52 07:52 WBC RBC Hgb Hct MCV MCH MCHC RDW Plt Count MPV Neut % (Auto) Lymph % (Auto) [place] % (Auto) Eos % (Auto) Baso % (Auto) Absolute Neuts (auto) Absolute Lymphs (auto) Absolute Monos (auto) Absolute Eos (auto) Absolute Basos (auto) Absolute Nucleated RBC Nucleated RBC % Sodium 137 Potassium 4.4 Chloride 103 Carbon Dioxide 30 Anion Gap 4 BUN 13 Creatinine 0.84 Est GFR ( Amer) 115.2 Est GFR (Non-Af Amer) 95.2 BUN/Creatinine Ratio 15.5 Glucose 97 Hemoglobin A1c 6.4 H Calcium 9.6 Total Bilirubin 0.40 AST 16 ALT 11 Alkaline Phosphatase 49 Total Protein 7.6 Albumin 4.4 Globulin 3.2 Albumin/Globulin Ratio 1.4 Triglycerides 70 Cholesterol 173 LDL Cholesterol 95 HDL Cholesterol 64.1 TSH 1.41 Urine Color Urine Appearance Urine pH Ur Specific [place] Urine Protein Urine Ketones Urine Blood Urine Nitrate Urine Bilirubin Urine Urobilinogen Ur Leukocyte Esterase Urine Glucose Urine Ascorbic Acid Urine Opiates Screen Ur Barbiturates Screen Ur Phencyclidine Scrn Ur Amphetamines Screen U Benzodiazepines Scrn Urine Cocaine Screen U Cannabinoids Screen Serum Alcohol < 10 Laboratory Tests 05/05/18 05/05/18 05/06/18 12:50 12:50 07:52 WBC 4.8 RBC 5.32 Hgb 12.3 L Hct 40 L MCV 75 L MCH 23 L MCHC 31 RDW 15 Plt Count 279 MPV 8.3 Neut % (Auto) 41.2 Lymph % (Auto) 45.0 [place] % (Auto) 10.8 Eos % (Auto) 2.2 Baso % (Auto) 0.8 Absolute Neuts (auto) 2.0 Absolute Lymphs (auto) 2.1 Absolute Monos (auto) 0.5 Absolute Eos (auto) 0.1 Absolute Basos (auto) 0 Absolute Nucleated RBC 0 Nucleated RBC % 0.1 Sodium Potassium Chloride Carbon Dioxide Anion Gap BUN Creatinine Est GFR ( Amer) Est GFR (Non-Af Amer) BUN/Creatinine Ratio Glucose Hemoglobin A1c Calcium Total Bilirubin AST ALT Alkaline Phosphatase Total Protein Albumin Globulin Albumin/Globulin Ratio Triglycerides Cholesterol LDL Cholesterol HDL Cholesterol TSH Urine Color Yellow Urine Appearance Clear Urine pH 6.0 Ur Specific [place] 1.036 H Urine Protein Negative Urine Ketones Negative Urine Blood Negative Urine Nitrate Negative Urine Bilirubin Negative Urine Urobilinogen Negative Ur Leukocyte Esterase Negative Urine Glucose Negative Urine Ascorbic Acid * A Urine Opiates Screen None detected Ur Barbiturates Screen None detected Ur Phencyclidine Scrn None detected Ur Amphetamines Screen None detected U Benzodiazepines Scrn None detected Urine Cocaine Screen None detected U Cannabinoids Screen None detected Serum Alcohol 05/06/18 05/06/18 07:52 07:52 WBC RBC Hgb Hct MCV MCH MCHC RDW Plt Count MPV Neut % (Auto) Lymph % (Auto) [place] % (Auto) Eos % (Auto) Baso % (Auto) Absolute Neuts (auto) Absolute Lymphs (auto) Absolute Monos (auto) Absolute Eos (auto) Absolute Basos (auto) Absolute Nucleated RBC Nucleated RBC % Sodium 137 Potassium 4.4 Chloride 103 Carbon Dioxide 30 Anion Gap 4 BUN 13 Creatinine 0.84 Est GFR ( Amer) 115.2 Est GFR (Non-Af Amer) 95.2 BUN/Creatinine Ratio 15.5 Glucose 97 Hemoglobin A1c 6.4 H Calcium 9.6 Total Bilirubin 0.40 AST 16 ALT 11 Alkaline Phosphatase 49 Total Protein 7.6 Albumin 4.4 Globulin 3.2 Albumin/Globulin Ratio 1.4 Triglycerides 70 Cholesterol 173 LDL Cholesterol 95 HDL Cholesterol 64.1 TSH 1.41 Urine Color Urine Appearance Urine pH Ur Specific [place] Urine Protein Urine Ketones Urine Blood Urine Nitrate Urine Bilirubin Urine Urobilinogen Ur Leukocyte Esterase Urine Glucose Urine Ascorbic Acid Urine Opiates Screen Ur Barbiturates Screen Ur Phencyclidine Scrn Ur Amphetamines Screen U Benzodiazepines Scrn Urine Cocaine Screen U Cannabinoids Screen Serum Alcohol < 10 Vital Signs Temp 97.2 F 05/07/18 07:38 Pulse 60 05/07/18 07:38 Resp 12 05/07/18 07:38 BP 135/90 05/07/18 07:38 Pulse Ox 100 05/07/18 07:38 Continued Medication Management: Continue Outpt Medication - TOO Medications: Current Medications Acetaminophen (Tylenol Tab*) 650 mg PO Q4H PRN PRN Reason: for pain; or Temp >101 F Al Hydrox/Mg Hydrox/Simethicone (Maalox Plus*) 30 ml PO Q4H PRN PRN Reason: INDIGESTION Aripiprazole (Abilify Tab*) 5 mg PO DAILY [facility] Last Admin: 05/09/18 10:26 Dose: Not Given Diphenhydramine HCl (Benadryl Po*) 50 mg PO Q6H PRN PRN Reason: AGITATION Haloperidol (Haldol Tab*) 5 mg PO Q6H PRN PRN Reason: AGITATION Lorazepam (Ativan Tab(*)) 1 mg PO Q4H PRN PRN Reason: ANXIETY Lorazepam (Ativan Tab(*)) 2 mg PO Q6H PRN PRN Reason: ANXIETY Lorazepam (Ativan Tab(*)) 1 mg PO 2100 [facility] Last Admin: 05/08/18 20:45 Dose: Not Given Metformin HCl (Glucophage*) 500 mg PO DAILY [facility] Last Admin: 05/09/18 10:26 Dose: Not Given - Discharge Plan Discharge Plan: Outpatient Follow Up Outpatient Program: [facility]
[2018-05-09] MEDS: LORazepam TAB(*) 1 MG PO SCH (19:57)
[2018-05-10] MEDS: ARIPiprazole TAB* 5 MG PO SCH (09:39)
[2018-05-10] MEDS: metFORMIN* 500 MG TAB PO SCH (09:39)
--- NOTE | 2018-05-10 10:32 | PN ---
Subjective - Subjective Date of Service: 05/10/18 Service Type: [id number] Hosp care 25 min moderate complexity Subjective: Nursing Report: Patient was visible on unit, but mostly in this room, no chemical restraints or PRNs. Slept overnight without incident. NOT Attending group activities. CC: "I am not talking to you" Patient was seen and evaluated in the common room. He refused medications over the weekend. Per nursing report he was mostly in his room , hear talking to himself in his room. He has not been interacting with peers. He reported having an adequate appetite and sleep. Before encounter was observed reading and laughing to himself. He is refusing to answer any more questions. Objective - Appearance Appearance: Healthy Appearing Dysmorphic Features: No Hygiene: Normal Grooming: Fairly Well Kept - Behavior Psychomotor Activities: Normal Exhibits Abnormal Movement: No - Attitude and Relatedness Attitude and Relatedness: Withdrawn Eye Contact: Fair - Speech Quality: Pressured Latencies: Short Quantity: Copious - Mood Patient's Decription of Mood: "Angry" - Affect Observed Affect: Labile Affect Consistent with: Euphoria - Thought Process Patient's Thought Process: Filght of Ideas Thought Content: Yes Paranoid Ideation, No Passive Wish, No Suicidal Planning, No Homicidal Ideation - Sensorium Experiencing Hallucinations: Yes Type of Hallucinations: Visual: No, Auditory: Yes, Command: No - Level of Consciousness Level of Consciousness: Alert Orientation: Yes Intact, Yes Orientated to Time, Yes Orientated to Place, Yes Orientated to Person - Impulse Control Impulse Control: Impaired - Insight and Judgement Insight and Judgement: Impaired - Group Participation Particating in Group Activities: No - Medication Management Medication Management Adherence: No Assessment - Assessment Clinical Impression: 52 year old Male with a history of schizoaffective disorder is medication non compliant and currently showing signs of decompensation. Plan - Plan Treatment Plan: Name: HILLARY SANCHEZ Birthdate: 1965 [id number] Plan #The patient requires inpatient admission at this time to assure safety, receive treatment and work toward stabilization. #Patient refusing medication will begin Treatment over objection process. #Start risperdal 2mg BID. #D/C abilify and ativan. #Continue metformin 500mg PO daily #Goals before discharge include: Increase medication compliance and decrease psychosis The risks, benefits, and alternative treatment options were discussed as well as of the risks of refusing treatment. When comparing the risks of treatment with the dangers of current clinical presentation. The benefits of treatment outweigh the treatment risks at this time. Vital Signs Temp Pulse Resp BP Pulse Ox 98.0 F 70 17 124/75 100 05/09/18 07:33 05/09/18 07:33 05/09/18 07:33 05/09/18 07:33 05/09/18 07:33 Sodium 137 mmol/L (135-145) 05/06/18 07:52 Potassium 4.4 mmol/L (3.5-5.0) 05/06/18 07:52 BUN 13 mg/dL (6-24) 05/06/18 07:52 Creatinine 0.84 mg/dL (0.67-1.17) 05/06/18 07:52 Hemoglobin A1c 6.4 % (4.0-5.6) H 05/06/18 07:52 Calcium 9.6 mg/dL (8.6-10.3) 05/06/18 07:52 AST 16 U/L (13-39) 05/06/18 07:52 ALT 11 U/L (7-52) 05/06/18 07:52 Triglycerides 70 mg/dL 05/06/18 07:52 Cholesterol 173 mg/dL 05/06/18 07:52 LDL Cholesterol 95 mg/dL 05/06/18 07:52 Continued Medication Management: Start Medication Medications: Current Medications Acetaminophen (Tylenol Tab*) 650 mg PO Q4H PRN PRN Reason: for pain; or Temp >101 F Al Hydrox/Mg Hydrox/Simethicone (Maalox Plus*) 30 ml PO Q4H PRN PRN Reason: INDIGESTION Aripiprazole (Abilify Tab*) 5 mg PO DAILY [facility] Last Admin: 05/10/18 09:39 Dose: Not Given Diphenhydramine HCl (Benadryl Po*) 50 mg PO Q6H PRN PRN Reason: AGITATION Haloperidol (Haldol Tab*) 5 mg PO Q6H PRN PRN Reason: AGITATION Lorazepam (Ativan Tab(*)) 1 mg PO Q4H PRN PRN Reason: ANXIETY Lorazepam (Ativan Tab(*)) 2 mg PO Q6H PRN PRN Reason: ANXIETY Lorazepam (Ativan Tab(*)) 1 mg PO 2100 [facility] Last Admin: 05/09/18 19:57 Dose: Not Given Metformin HCl (Glucophage*) 500 mg PO DAILY [facility] Last Admin: 05/10/18 09:39 Dose: Not Given - Discharge Plan Discharge Plan: Inpatient Hospitalization
[2018-05-10] MEDS: risperiDONE-M * 1 MG TAB.ORADIS PO SCH (20:35)
--- NOTE | 2018-05-11 08:14 | PN ---
Subjective - Subjective Service Type: 39331 Hosp care 25 min moderate complexity Subjective: Nursing Report: Patient was visible on unit, no chemical restraints or PRNs. Slept overnight without incident. Attending group activities. CC: "I do not need medications" Patient was seen and evaluated in the common room today. 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 He reported having an adequate appetite and has not had good sleep. The patient denied attending and participating in day groups. Per nursing no behavioral issues or overnight events reported. Patient is continuing to refuse medications. Objective - Appearance Appearance: Healthy Appearing Dysmorphic Features: No Hygiene: Normal Grooming: Well Kept - Behavior Psychomotor Activities: Normal Exhibits Abnormal Movement: No - Attitude and Relatedness Attitude and Relatedness: Withdrawn Eye Contact: Fair - Speech Quality: Pressured Latencies: Short Quantity: Copious - Mood Patient's Decription of Mood: "Fine" - Affect Observed Affect: Labile Affect Consistent with: Euthymia - Thought Process Patient's Thought Process: Disorganized Thought Content: No Passive Wish, No Suicidal Planning, No Homicidal Ideation, No Paranoid Ideation - Sensorium Experiencing Hallucinations: Yes Type of Hallucinations: Visual: No, Auditory: Yes, Command: No - Level of Consciousness Level of Consciousness: Alert Orientation: Yes Intact, Yes Orientated to Time, Yes Orientated to Place, Yes Orientated to Person - Impulse Control Impulse Control: Impaired - Insight and Judgement Insight and Judgement: Impaired - Group Participation Particating in Group Activities: No - Medication Management Medication Management Adherence: No Assessment - Assessment Clinical Impression: 52 year old Male with a history of schizoaffective disorder is non compliant with medication and currently showing signs of decompensation. Plan - Plan Treatment Plan: Name: HILLARY SANCHEZ Birthdate: 1965 [id number] Plan #The patient requires inpatient admission at this time to assure safety, receive treatment and work toward stabilization. #Patient refusing medication will begin Treatment over objection process. #Continue Risperdal 2mg BID. #Continue metformin 500mg PO daily #Goals before discharge include: Increase medication compliance and decrease psychosis The risks, benefits, and alternative treatment options were discussed as well as of the risks of refusing treatment. When comparing the risks of treatment with the dangers of current clinical presentation. The benefits of treatment outweigh the treatment risks at this time. Sodium 137 mmol/L (135-145) 05/06/18 07:52 Potassium 4.4 mmol/L (3.5-5.0) 05/06/18 07:52 BUN 13 mg/dL (6-24) 05/06/18 07:52 Creatinine 0.84 mg/dL (0.67-1.17) 05/06/18 07:52 Hemoglobin A1c 6.4 % (4.0-5.6) H 05/06/18 07:52 Calcium 9.6 mg/dL (8.6-10.3) 05/06/18 07:52 AST 16 U/L (13-39) 05/06/18 07:52 ALT 11 U/L (7-52) 05/06/18 07:52 Triglycerides 70 mg/dL 05/06/18 07:52 Cholesterol 173 mg/dL 05/06/18 07:52 LDL Cholesterol 95 mg/dL 05/06/18 07:52 Vital Signs Temp Pulse Resp BP Pulse Ox 98.3 F 84 16 137/94 100 05/10/18 08:00 05/10/18 08:00 05/10/18 13:32 05/10/18 08:00 05/10/18 08:00 Continued Medication Management: Start Medication Medications: Current Medications Acetaminophen (Tylenol Tab*) 650 mg PO Q4H PRN PRN Reason: for pain; or Temp >101 F Al Hydrox/Mg Hydrox/Simethicone (Maalox Plus*) 30 ml PO Q4H PRN PRN Reason: INDIGESTION Diphenhydramine HCl (Benadryl Po*) 50 mg PO Q6H PRN PRN Reason: AGITATION Haloperidol (Haldol Tab*) 5 mg PO Q6H PRN PRN Reason: AGITATION Lorazepam (Ativan Tab(*)) 1 mg PO Q4H PRN PRN Reason: ANXIETY Lorazepam (Ativan Tab(*)) 2 mg PO Q6H PRN PRN Reason: ANXIETY Metformin HCl (Glucophage*) 500 mg PO DAILY [facility] Last Admin: 05/10/18 09:39 Dose: Not Given Risperidone (Risperdal-M Tab *) 2 mg PO BID [facility]; Protocol Last Admin: 05/10/18 20:35 Dose: Not Given - Discharge Plan Discharge Plan: Inpatient Hospitalization
[2018-05-11] MEDS: metFORMIN* 500 MG TAB PO SCH (08:23)
[2018-05-11] MEDS: risperiDONE-M * 1 MG TAB.ORADIS PO SCH ×2 (08:23→19:53)
--- NOTE | 2018-05-11 11:15 | PN ---
BSU: Group Therapy Note - Service Type Service Type: [id number] Group Psychotherapy - Cognitive Behavioral Group Therapy ( CBT):Patient was attentive and participatory in CBT programming this morning, and remained in good behavioral control. Patient expressed positive insights regarding relevant treatment interventions and goals.
[2018-05-12] MEDS: risperiDONE-M * 1 MG TAB.ORADIS PO SCH ×2 (09:01→20:39)
[2018-05-12] MEDS: metFORMIN* 500 MG TAB PO SCH (09:01)
--- NOTE | 2018-05-12 11:47 | PN ---
Subjective - Subjective Date of Service: 05/12/18 Service Type: [id number] Hosp care 35 min high complexity Subjective: Nursing Report: Patient was visible on unit, no chemical restraints or PRNs. Patient in room laughing to himself overnight. CC: "I am Hillary Sanchez" Patient was seen and evaluated in the common room today. He was observed eating breakfast. The patient reported he doesnt ever want to eat things that have animal products because it causes brain damage. He said that it will make him fat and have heart disease. Staff reports that he is mostly in his room talking and laughing to himself. He reported having an adequate appetite and has not had good sleep. The patient denied attending and participating in day groups. Per nursing no behavioral issues or overnight events reported. Patient is continuing to refuse medications. Objective - Appearance Appearance: Healthy Appearing Dysmorphic Features: No Hygiene: Normal Grooming: Fairly Well Kept - Behavior Psychomotor Activities: Normal Exhibits Abnormal Movement: No - Attitude and Relatedness Attitude and Relatedness: Superficially Cooperative Eye Contact: Fair - Speech Quality: Pressured Latencies: Short Quantity: Copious - Mood Patient's Decription of Mood: "Okay" - Affect Observed Affect: Expansive - Thought Process Patient's Thought Process: Disorganized Thought Content: Yes Paranoid Ideation, No Passive Wish, No Suicidal Planning, No Homicidal Ideation - Sensorium Experiencing Hallucinations: Yes Type of Hallucinations: Visual: No, Auditory: Yes, Command: No - Level of Consciousness Level of Consciousness: Alert Orientation: Yes Intact, Yes Orientated to Time, Yes Orientated to Place, Yes Orientated to Person - Impulse Control Impulse Control: Impaired - Insight and Judgement Insight and Judgement: Impaired - Group Participation Particating in Group Activities: No - Medication Management Medication Management Adherence: No Assessment - Assessment Merits Inpatient Hospitalization: For Immediate Safety Clinical Impression: 52 year old Male with a history of schizoaffective disorder is non compliant with medication and currently showing signs of decompensation. Plan - Plan Treatment Plan: Name: HILLARY SANCHEZ Birthdate: 1965 [id number] Plan #The patient requires inpatient admission at this time to assure safety, receive treatment and work toward stabilization. # Treatment over objection process completed awaiting court date. #Continue Risperdal 2mg BID. #Continue metformin 500mg PO daily #Goals before discharge include: Increase medication compliance and decrease psychosis The risks, benefits, and alternative treatment options were discussed as well as of the risks of refusing treatment. When comparing the risks of treatment with the dangers of current clinical presentation. The benefits of treatment outweigh the treatment risks at this time. Sodium 137 mmol/L (135-145) 05/06/18 07:52 Potassium 4.4 mmol/L (3.5-5.0) 05/06/18 07:52 BUN 13 mg/dL (6-24) 05/06/18 07:52 Creatinine 0.84 mg/dL (0.67-1.17) 05/06/18 07:52 Hemoglobin A1c 6.4 % (4.0-5.6) H 05/06/18 07:52 Calcium 9.6 mg/dL (8.6-10.3) 05/06/18 07:52 AST 16 U/L (13-39) 05/06/18 07:52 ALT 11 U/L (7-52) 05/06/18 07:52 Triglycerides 70 mg/dL 05/06/18 07:52 Cholesterol 173 mg/dL 05/06/18 07:52 LDL Cholesterol 95 mg/dL 05/06/18 07:52 Vital Signs Temp Pulse Resp BP Pulse Ox 98.4 F 70 17 126/86 100 05/12/18 07:56 05/12/18 07:56 05/12/18 07:56 05/12/18 07:56 05/12/18 07:56 Continued Medication Management: Continue Outpt Medication Medications: Current Medications Acetaminophen (Tylenol Tab*) 650 mg PO Q4H PRN PRN Reason: for pain; or Temp >101 F Al Hydrox/Mg Hydrox/Simethicone (Maalox Plus*) 30 ml PO Q4H PRN PRN Reason: INDIGESTION Diphenhydramine HCl (Benadryl Po*) 50 mg PO Q6H PRN PRN Reason: AGITATION Haloperidol (Haldol Tab*) 5 mg PO Q6H PRN PRN Reason: AGITATION Lorazepam (Ativan Tab(*)) 1 mg PO Q4H PRN PRN Reason: ANXIETY Lorazepam (Ativan Tab(*)) 2 mg PO Q6H PRN PRN Reason: ANXIETY Metformin HCl (Glucophage*) 500 mg PO DAILY [facility] Last Admin: 05/12/18 09:01 Dose: Not Given Risperidone (Risperdal-M Tab *) 2 mg PO BID [facility]; Protocol Last Admin: 05/12/18 09:01 Dose: Not Given - Discharge Plan Discharge Plan: Inpatient Hospitalization
--- NOTE | 2018-05-13 08:23 | PN ---
Subjective - Subjective Date of Service: 05/13/18 Service Type: [id number] Hosp care 35 min high complexity Subjective: Nursing Report: Patient was visible on unit, no chemical restraints or PRNs. Patient mostly in his room responding to internal stimuli. CC: "I am fine" Patient was seen and evaluated in the common room today. He was observed eating breakfast talking to himself. The patient reported he did not sleep overnight. He reported that he doesnt sleep but just rests. He fused taking medications. He reported having an adequate appetite. The patient said that he has not been attending or participating in day groups. . Patient is continuing to refuse medications. Per nursing no behavioral issues or overnight events reported. Objective - Appearance Dysmorphic Features: No Hygiene: Normal Grooming: Fairly Well Kept - Behavior Psychomotor Activities: Normal Exhibits Abnormal Movement: No - Attitude and Relatedness Attitude and Relatedness: Superficially Cooperative Eye Contact: Fair - Speech Quality: Pressured Latencies: Short - Mood Patient's Decription of Mood: "Fine" - Affect Observed Affect: Constricted Affect Consistent with: Euphoria - Thought Process Patient's Thought Process: Disorganized Thought Content: Yes Paranoid Ideation, No Passive Wish, No Suicidal Planning, No Homicidal Ideation - Sensorium Experiencing Hallucinations: No, Sensorium is Clear Type of Hallucinations: Visual: No, Auditory: Yes, Command: No - Level of Consciousness Level of Consciousness: Alert Orientation: Yes Intact, Yes Orientated to Time, Yes Orientated to Place, Yes Orientated to Person - Impulse Control Impulse Control: Impaired - Insight and Judgement Insight and Judgement: Impaired - Group Participation Particating in Group Activities: No - Medication Management Medication Management Adherence: No Assessment - Assessment Merits Inpatient Hospitalization: For Immediate Safety Clinical Impression: 52 year old Male with a history of schizoaffective disorder is non compliant with medication and currently showing signs of decompensation. Plan - Plan Treatment Plan: Name: HILLARY SANCHEZ Birthdate: 1965 [id number] Plan #The patient requires inpatient admission at this time to assure safety, receive treatment and work toward stabilization. # Treatment over objection process completed awaiting court date. #Continue Risperdal 2mg BID. #Continue metformin 500mg PO daily #Goals before discharge include: Increase medication compliance and decrease psychosis The risks, benefits, and alternative treatment options were discussed as well as of the risks of refusing treatment. When comparing the risks of treatment with the dangers of current clinical presentation. The benefits of treatment outweigh the treatment risks at this time. Sodium 137 mmol/L (135-145) 05/06/18 07:52 Potassium 4.4 mmol/L (3.5-5.0) 05/06/18 07:52 BUN 13 mg/dL (6-24) 05/06/18 07:52 Creatinine 0.84 mg/dL (0.67-1.17) 05/06/18 07:52 Hemoglobin A1c 6.4 % (4.0-5.6) H 05/06/18 07:52 Calcium 9.6 mg/dL (8.6-10.3) 05/06/18 07:52 AST 16 U/L (13-39) 05/06/18 07:52 ALT 11 U/L (7-52) 05/06/18 07:52 Triglycerides 70 mg/dL 05/06/18 07:52 Cholesterol 173 mg/dL 05/06/18 07:52 LDL Cholesterol 95 mg/dL 05/06/18 07:52 Vital Signs Temp Pulse Resp BP Pulse Ox 99.0 F 71 16 117/77 100 05/13/18 07:53 05/13/18 07:53 05/13/18 07:53 05/13/18 07:53 05/13/18 07:53 Continued Medication Management: Start Medication Medications: Current Medications Acetaminophen (Tylenol Tab*) 650 mg PO Q4H PRN PRN Reason: for pain; or Temp >101 F Al Hydrox/Mg Hydrox/Simethicone (Maalox Plus*) 30 ml PO Q4H PRN PRN Reason: INDIGESTION Diphenhydramine HCl (Benadryl Po*) 50 mg PO Q6H PRN PRN Reason: AGITATION Haloperidol (Haldol Tab*) 5 mg PO Q6H PRN PRN Reason: AGITATION Lorazepam (Ativan Tab(*)) 1 mg PO Q4H PRN PRN Reason: ANXIETY Lorazepam (Ativan Tab(*)) 2 mg PO Q6H PRN PRN Reason: ANXIETY Metformin HCl (Glucophage*) 500 mg PO DAILY [facility] Last Admin: 05/12/18 09:01 Dose: Not Given Risperidone (Risperdal-M Tab *) 2 mg PO BID [facility] [place]; Protocol Last Admin: 05/12/18 20:39 Dose: Not Given - Discharge Plan Discharge Plan: Inpatient Hospitalization
[2018-05-13] MEDS: risperiDONE-M * 1 MG TAB.ORADIS PO SCH ×2 (08:45→20:11)
[2018-05-13] MEDS: metFORMIN* 500 MG TAB PO SCH (08:45)
--- NOTE | 2018-05-14 11:06 | PN ---
Subjective - Subjective Date of Service: 05/14/18 Service Type: [id number] Hosp care 35 min high complexity Subjective: Nursing Report: Patient was visible on unit, no chemical restraints or PRNs. Patient mostly in his room responding to internal stimuli. CC: "I am good" Patient was seen and evaluated in his room. He was seen laying in his bed. He was heard talking to himself before the encounter. He said " why are people worried about me? I just dont understand it. " The patient reported he did not sleep overnight and usually doesnt sleep. He reported eating this morning. The patient said that he did attend and participated in day groups. Patient is continuing to refuse medications. Per nursing no behavioral issues or overnight events reported. Objective - Appearance Appearance: Healthy Appearing Dysmorphic Features: No Hygiene: Normal Grooming: Well Kept - Behavior Psychomotor Activities: Normal Exhibits Abnormal Movement: No - Attitude and Relatedness Attitude and Relatedness: Cooperative Eye Contact: Fair - Speech Quality: Unpressured Latencies: Normal Quantity: Appropriate - Mood Patient's Decription of Mood: "Good" - Affect Observed Affect: Labile Affect Consistent with: Euphoria - Thought Process Patient's Thought Process: Disorganized Thought Content: Yes Paranoid Ideation, No Passive Wish, No Suicidal Planning, No Homicidal Ideation - Sensorium Experiencing Hallucinations: Yes Type of Hallucinations: Visual: No, Auditory: Yes, Command: No - Level of Consciousness Level of Consciousness: Alert Orientation: Yes Intact, Yes Orientated to Time, Yes Orientated to Place, Yes Orientated to Person - Impulse Control Impulse Control: Impaired - Insight and Judgement Insight and Judgement: Impaired - Group Participation Particating in Group Activities: Yes Assessment - Assessment Merits Inpatient Hospitalization: For Immediate Safety Clinical Impression: 52 year old Male with a history of schizoaffective disorder is non compliant with medication and currently showing signs of decompensation. Plan - Plan Treatment Plan: Name: HILLARY SANCHEZ Birthdate: 1965 [id number] Plan #The patient requires inpatient admission at this time to assure safety, receive treatment and work toward stabilization. # Treatment over objection process court likely for next week #Continue Risperdal 2mg BID. #Continue metformin 500mg PO daily #Goals before discharge include: Increase medication compliance and decrease psychosis The risks, benefits, and alternative treatment options were discussed as well as of the risks of refusing treatment. When comparing the risks of treatment with the dangers of current clinical presentation. The benefits of treatment outweigh the treatment risks at this time. Sodium 137 mmol/L (135-145) 05/06/18 07:52 Potassium 4.4 mmol/L (3.5-5.0) 05/06/18 07:52 BUN 13 mg/dL (6-24) 05/06/18 07:52 Creatinine 0.84 mg/dL (0.67-1.17) 05/06/18 07:52 Hemoglobin A1c 6.4 % (4.0-5.6) H 05/06/18 07:52 Calcium 9.6 mg/dL (8.6-10.3) 05/06/18 07:52 AST 16 U/L (13-39) 05/06/18 07:52 ALT 11 U/L (7-52) 05/06/18 07:52 Triglycerides 70 mg/dL 05/06/18 07:52 Cholesterol 173 mg/dL 05/06/18 07:52 LDL Cholesterol 95 mg/dL 05/06/18 07:52 Vital Signs Temp Pulse Resp BP Pulse Ox 99.0 F 71 16 117/77 100 05/13/18 07:53 05/13/18 07:53 05/14/18 10:25 05/13/18 07:53 05/13/18 07:53 Continued Medication Management: Continue Outpt Medication Medications: Current Medications Acetaminophen (Tylenol Tab*) 650 mg PO Q4H PRN PRN Reason: for pain; or Temp >101 F Al Hydrox/Mg Hydrox/Simethicone (Maalox Plus*) 30 ml PO Q4H PRN PRN Reason: INDIGESTION Diphenhydramine HCl (Benadryl Po*) 50 mg PO Q6H PRN PRN Reason: AGITATION Haloperidol (Haldol Tab*) 5 mg PO Q6H PRN PRN Reason: AGITATION Lorazepam (Ativan Tab(*)) 1 mg PO Q4H PRN PRN Reason: ANXIETY Lorazepam (Ativan Tab(*)) 2 mg PO Q6H PRN PRN Reason: ANXIETY Metformin HCl (Glucophage*) 500 mg PO DAILY [facility] Last Admin: 05/13/18 08:45 Dose: Not Given Risperidone (Risperdal-M Tab *) 2 mg PO BID [facility]; Protocol Last Admin: 05/13/18 20:11 Dose: Not Given - Discharge Plan Discharge Plan: Inpatient Hospitalization
[2018-05-14] MEDS: risperiDONE-M * 1 MG TAB.ORADIS PO SCH ×2 (11:14→21:02)
[2018-05-14] MEDS: metFORMIN* 500 MG TAB PO SCH (11:14)
[2018-05-15] MEDS: metFORMIN* 500 MG TAB PO SCH (08:05)
[2018-05-15] MEDS: risperiDONE-M * 1 MG TAB.ORADIS PO SCH ×2 (08:05→21:05)
[2018-05-16] MEDS: metFORMIN* 500 MG TAB PO SCH (09:47)
[2018-05-16] MEDS: risperiDONE-M * 1 MG TAB.ORADIS PO SCH ×2 (09:48→22:00)
[2018-05-17] MEDS: metFORMIN* 500 MG TAB PO SCH (10:41)
[2018-05-17] MEDS: risperiDONE-M * 1 MG TAB.ORADIS PO SCH ×2 (10:42→22:10)
--- NOTE | 2018-05-17 12:35 | PN ---
Subjective - Subjective Date of Service: 05/17/18 Service Type: [id number] Hosp care 35 min high complexity Subjective: Nursing Report: Patient was visible on unit, no chemical restraints or PRNs. Patient mostly in his room responding to internal stimuli. CC: "I am good" Patient was seen and evaluated in his room. He was seen laying in his bed. Per nursing no behavioral issues or overnight events reported. He denied that his leg was hurting. He is requesting soda without caffeine. Court hearing took place today and patient is in agreement with taking risperdal by mouth. 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 Objective - Appearance Appearance: Well Developed/Nourished, Thin Framed Dysmorphic Features: No Hygiene: Normal Grooming: Fairly Well Kept - Behavior Psychomotor Activities: Abnormal-Increased Exhibits Abnormal Movement: No - Attitude and Relatedness Attitude and Relatedness: Minimally Cooperative Eye Contact: Fair - Speech Quality: Pressured Latencies: Short Quantity: Copious - Mood Patient's Decription of Mood: "Okay" - Affect Observed Affect: Constricted Affect Consistent with: Euphoria - Thought Process Patient's Thought Process: Disorganized Thought Content: Yes Paranoid Ideation, No Passive Wish, No Suicidal Planning, No Homicidal Ideation - Sensorium Experiencing Hallucinations: Yes Type of Hallucinations: Visual: No, Auditory: Yes, Command: Yes - Level of Consciousness Level of Consciousness: Alert Orientation: Yes Intact, Yes Orientated to Time, Yes Orientated to Place, Yes Orientated to Person - Impulse Control Impulse Control: Impaired - Insight and Judgement Insight and Judgement: Impaired - Group Participation Particating in Group Activities: No - Medication Management Medication Management Adherence: No Assessment - Assessment Clinical Impression: 52 year old Male with a history of schizoaffective disorder is non compliant with medication and currently showing signs of decompensation. Plan - Plan Treatment Plan: Name: HILLARY SANCHEZ Birthdate: 1965 [id number] Plan #The patient requires inpatient admission at this time to assure safety, receive treatment and work toward stabilization. # Court hearing today granted treatment over objection. #Continue Risperdal 2mg BID M tab. (Court ordered) #Continue metformin 500mg PO daily #Long acting anti psychotic injectable before discharge. #Goals before discharge include: Increase medication compliance and decrease psychosis. The risks, benefits, and alternative treatment options were discussed as well as of the risks of refusing treatment. When comparing the risks of treatment with the dangers of current clinical presentation. The benefits of treatment outweigh the treatment risks at this time. Continued Medication Management: Continue Outpt Medication Medications: Current Medications Acetaminophen (Tylenol Tab*) 650 mg PO Q4H PRN PRN Reason: for pain; or Temp >101 F Al Hydrox/Mg Hydrox/Simethicone (Maalox Plus*) 30 ml PO Q4H PRN PRN Reason: INDIGESTION Diphenhydramine HCl (Benadryl Po*) 50 mg PO Q6H PRN PRN Reason: AGITATION Haloperidol (Haldol Tab*) 5 mg PO Q6H PRN PRN Reason: AGITATION Lorazepam (Ativan Tab(*)) 1 mg PO Q4H PRN PRN Reason: ANXIETY Lorazepam (Ativan Tab(*)) 2 mg PO Q6H PRN PRN Reason: ANXIETY Metformin HCl (Glucophage*) 500 mg PO DAILY [facility] Last Admin: 05/17/18 10:41 Dose: Not Given Risperidone (Risperdal-M Tab *) 2 mg PO BID [facility]; Protocol Last Admin: 05/17/18 10:42 Dose: Not Given - Discharge Plan Discharge Plan: Inpatient Hospitalization
[2018-05-17] MEDS ORDERED: risperiDONE-M * 1 MG TAB.ORADIS PO SCH (16:00)
[2018-05-18] MEDS: metFORMIN* 500 MG TAB PO SCH (09:20)
[2018-05-18] MEDS: risperiDONE-M * 1 MG TAB.ORADIS PO SCH ×2 (09:20→19:47)
[2018-05-18] MEDS ORDERED: Paliperidone SUSTENNA* 234 MG/1.5 ML IM ONE (10:11)
--- NOTE | 2018-05-18 11:59 | PN ---
BSU: Group Therapy Note - Service Type Service Type: 12327 Group Psychotherapy - CBT Group Note: Horacio was attentive and participatory in programming this morning, engaging in relevant and coherent conversation. He described beginning to take prescribed medications after his court hearing, and is looking forward to going home after discharge. He describes good adjustment to current living situation, and engagment in volunteering in the community. He presents with good affect and is attentive to discussion.
--- NOTE | 2018-05-18 15:07 | PN ---
Subjective - Subjective Date of Service: 05/18/18 Service Type: [id number] Hosp care 35 min high complexity Subjective: Nursing Report: Patient was visible on unit, no chemical restraints or PRNs. Patient mostly in his room responding to internal stimuli. CC: "I do not want a injection" Patient was seen and evaluated in his room. He was seen laying in his bed. He took oral risperdal medication yesterday evening. He is refusing to take long acting injection. Per nursing no behavioral issues or overnight events reported. He is refusing to answer any questions. Patient heard responding to internal stimuli. Objective - Appearance Appearance: Thin Framed Dysmorphic Features: No Hygiene: Normal Grooming: Well Kept - Behavior Psychomotor Activities: Normal Exhibits Abnormal Movement: No - Attitude and Relatedness Attitude and Relatedness: Withdrawn Eye Contact: Fair - Speech Quality: Pressured Latencies: Short Quantity: Copious - Mood Patient's Decription of Mood: "Upset" - Affect Observed Affect: Constricted Affect Consistent with: Euphoria - Thought Process Patient's Thought Process: Disorganized Thought Content: Yes Paranoid Ideation, No Passive Wish, No Suicidal Planning, No Homicidal Ideation - Sensorium Experiencing Hallucinations: Yes Type of Hallucinations: Visual: No, Auditory: Yes, Command: No - Level of Consciousness Level of Consciousness: Alert Orientation: Yes Intact, Yes Orientated to Time, Yes Orientated to Place, Yes Orientated to Person - Impulse Control Impulse Control: Impaired - Insight and Judgement Insight and Judgement: Impaired - Group Participation Particating in Group Activities: No - Medication Management Medication Management Adherence: Partial Assessment - Assessment Merits Inpatient Hospitalization: For Immediate Safety, For Stabilization Clinical Impression: 52 year old Male with a history of schizoaffective disorder on court order treatment. Plan - Plan Treatment Plan: Name: HILLARY SANCHEZ Birthdate: 1965 [id number] Plan #The patient requires inpatient admission at this time to assure safety, receive treatment and work toward stabilization. #Continue Risperdal 2mg BID M tab. (Court ordered) #Continue metformin 500mg PO daily #Patient is refusing Long acting anti psychotic injectable. Plan to give invega 234mg loading dose tomorrow . #Goals before discharge include: Increase medication compliance and decrease psychosis. The risks, benefits, and alternative treatment options were discussed as well as of the risks of refusing treatment. When comparing the risks of treatment with the dangers of current clinical presentation. The benefits of treatment outweigh the treatment risks at this time. Continued Medication Management: Start Medication Medications: Current Medications Acetaminophen (Tylenol Tab*) 650 mg PO Q4H PRN PRN Reason: for pain; or Temp >101 F Al Hydrox/Mg Hydrox/Simethicone (Maalox Plus*) 30 ml PO Q4H PRN PRN Reason: INDIGESTION Diphenhydramine HCl (Benadryl Po*) 50 mg PO Q6H PRN PRN Reason: AGITATION Haloperidol (Haldol Tab*) 5 mg PO Q6H PRN PRN Reason: AGITATION Lorazepam (Ativan Tab(*)) 2 mg PO Q6H PRN PRN Reason: ANXIETY Metformin HCl (Glucophage*) 500 mg PO DAILY [facility] Last Admin: 05/18/18 09:20 Dose: Not Given Risperidone (Risperdal-M Tab *) 2 mg PO 0900,2100 [facility]; Protocol Last Admin: 05/18/18 09:20 Dose: 2 mg - Discharge Plan Discharge Plan: Inpatient Hospitalization
[2018-05-19] MEDS: metFORMIN* 500 MG TAB PO SCH (10:16)
[2018-05-19] MEDS: risperiDONE-M * 1 MG TAB.ORADIS PO SCH ×2 (11:02→21:19)
--- NOTE | 2018-05-19 14:26 | PN ---
Subjective - Subjective Date of Service: 05/19/18 Service Type: [id number] Hosp care 35 min high complexity Subjective: Nursing Report: Patient was visible on unit, no chemical restraints or PRNs. Patient taking medication. CC: "I will take my medication" Patient was seen and evaluated in the relaxation room. He said that he will take oral medications but refused to take a injection. Per nursing no behavioral issues or overnight events reported. He said that he knows the Mayor of [place] because when his little sister they became friends. He reported feeling safe on the unit and denied feeling that people were after him or out to get him. He has been getting along with peers and staff. He signed the ACT forms. Objective - Appearance Dysmorphic Features: No Hygiene: Normal Grooming: Well Kept - Behavior Psychomotor Activities: Normal Exhibits Abnormal Movement: No - Attitude and Relatedness Attitude and Relatedness: Cooperative Eye Contact: Fair - Speech Quality: Unpressured Latencies: Normal Quantity: Appropriate - Mood Patient's Decription of Mood: "Good" - Affect Observed Affect: Non-labile Affect Consistent with: Euthymia - Thought Process Patient's Thought Process: Disorganized Thought Content: No Passive Wish, No Suicidal Planning, No Homicidal Ideation, No Paranoid Ideation - Sensorium Experiencing Hallucinations: Yes Type of Hallucinations: Visual: No, Auditory: Yes - improved , Command: No - Level of Consciousness Level of Consciousness: Alert Orientation: Yes Intact, Yes Orientated to Time, Yes Orientated to Place, Yes Orientated to Person - Impulse Control Impulse Control: Poor - Insight and Judgement Insight and Judgement: Fair - Group Participation Particating in Group Activities: No - Medication Management Medication Management Adherence: Yes Assessment - Assessment Clinical Impression: 52 year old Male with a history of schizoaffective disorder on court order treatment. He has been compliant with oral medications. Plan - Plan Treatment Plan: Name: HILLARY SANCHEZ Birthdate: 1965 [id number] Plan #The patient requires inpatient admission at this time to assure safety, receive treatment and work toward stabilization. #Continue Risperdal 4mg BID M tab at night (Court ordered) #Continue metformin 500mg PO daily (Not court ordered) #ACT team plans to come tomorrow to evaluate patient #Plan to discharge / Thursday if patient continues to be compliant with medication and ACT team agrees to frequent follow up. #Goals before discharge include: Increase medication compliance and decrease psychosis. The risks, benefits, and alternative treatment options were discussed as well as of the risks of refusing treatment. When comparing the risks of treatment with the dangers of current clinical presentation. The benefits of treatment outweigh the treatment risks at this time. Laboratory Tests 05/05/18 05/05/18 05/06/18 12:50 12:50 07:52 WBC 4.8 RBC 5.32 Hgb 12.3 L Hct 40 L MCV 75 L MCH 23 L MCHC 31 RDW 15 Plt Count 279 MPV 8.3 Neut % (Auto) 41.2 Lymph % (Auto) 45.0 [place] % (Auto) 10.8 Eos % (Auto) 2.2 Baso % (Auto) 0.8 Absolute Neuts (auto) 2.0 Absolute Lymphs (auto) 2.1 Absolute Monos (auto) 0.5 Absolute Eos (auto) 0.1 Absolute Basos (auto) 0 Absolute Nucleated RBC 0 Nucleated RBC % 0.1 Sodium Potassium Chloride Carbon Dioxide Anion Gap BUN Creatinine Est GFR ( Amer) Est GFR (Non-Af Amer) BUN/Creatinine Ratio Glucose Hemoglobin A1c Calcium Total Bilirubin AST ALT Alkaline Phosphatase Total Protein Albumin Globulin Albumin/Globulin Ratio Triglycerides Cholesterol LDL Cholesterol HDL Cholesterol TSH Urine Color Yellow Urine Appearance Clear Urine pH 6.0 Ur Specific [place] 1.036 H Urine Protein Negative Urine Ketones Negative Urine Blood Negative Urine Nitrate Negative Urine Bilirubin Negative Urine Urobilinogen Negative Ur Leukocyte Esterase Negative Urine Glucose Negative Urine Ascorbic Acid * A Urine Opiates Screen None detected Ur Barbiturates Screen None detected Ur Phencyclidine Scrn None detected Ur Amphetamines Screen None detected U Benzodiazepines Scrn None detected Urine Cocaine Screen None detected U Cannabinoids Screen None detected Serum Alcohol 05/06/18 05/06/18 07:52 07:52 WBC RBC Hgb Hct MCV MCH MCHC RDW Plt Count MPV Neut % (Auto) Lymph % (Auto) [place] % (Auto) Eos % (Auto) Baso % (Auto) Absolute Neuts (auto) Absolute Lymphs (auto) Absolute Monos (auto) Absolute Eos (auto) Absolute Basos (auto) Absolute Nucleated RBC Nucleated RBC % Sodium 137 Potassium 4.4 Chloride 103 Carbon Dioxide 30 Anion Gap 4 BUN 13 Creatinine 0.84 Est GFR ( Amer) 115.2 Est GFR (Non-Af Amer) 95.2 BUN/Creatinine Ratio 15.5 Glucose 97 Hemoglobin A1c 6.4 H Calcium 9.6 Total Bilirubin 0.40 AST 16 ALT 11 Alkaline Phosphatase 49 Total Protein 7.6 Albumin 4.4 Globulin 3.2 Albumin/Globulin Ratio 1.4 Triglycerides 70 Cholesterol 173 LDL Cholesterol 95 HDL Cholesterol 64.1 TSH 1.41 Urine Color Urine Appearance Urine pH Ur Specific [place] Urine Protein Urine Ketones Urine Blood Urine Nitrate Urine Bilirubin Urine Urobilinogen Ur Leukocyte Esterase Urine Glucose Urine Ascorbic Acid Urine Opiates Screen Ur Barbiturates Screen Ur Phencyclidine Scrn Ur Amphetamines Screen U Benzodiazepines Scrn Urine Cocaine Screen U Cannabinoids Screen Serum Alcohol < 10 Sodium 137 mmol/L (135-145) 05/06/18 07:52 Potassium 4.4 mmol/L (3.5-5.0) 05/06/18 07:52 BUN 13 mg/dL (6-24) 05/06/18 07:52 Creatinine 0.84 mg/dL (0.67-1.17) 05/06/18 07:52 Hemoglobin A1c 6.4 % (4.0-5.6) H 05/06/18 07:52 Calcium 9.6 mg/dL (8.6-10.3) 05/06/18 07:52 AST 16 U/L (13-39) 05/06/18 07:52 ALT 11 U/L (7-52) 05/06/18 07:52 Triglycerides 70 mg/dL 05/06/18 07:52 Cholesterol 173 mg/dL 05/06/18 07:52 LDL Cholesterol 95 mg/dL 05/06/18 07:52 Continued Medication Management: Continue Outpt Medication Medications: Current Medications Acetaminophen (Tylenol Tab*) 650 mg PO Q4H PRN PRN Reason: for pain; or Temp >101 F Al Hydrox/Mg Hydrox/Simethicone (Maalox Plus*) 30 ml PO Q4H PRN PRN Reason: INDIGESTION Diphenhydramine HCl (Benadryl Po*) 50 mg PO Q6H PRN PRN Reason: AGITATION Haloperidol (Haldol Tab*) 5 mg PO Q6H PRN PRN Reason: AGITATION Lorazepam (Ativan Tab(*)) 2 mg PO Q6H PRN PRN Reason: ANXIETY Metformin HCl (Glucophage*) 500 mg PO DAILY [facility] Last Admin: 05/19/18 10:16 Dose: Not Given Risperidone (Risperdal-M Tab *) 4 mg PO 2100 [facility]; Protocol - Discharge Plan Discharge Plan: Inpatient Hospitalization Outpatient Program: [facility]
--- NOTE | 2018-05-20 11:21 | PN ---
Subjective - Subjective Date of Service: 05/20/18 Service Type: [id number] Hosp care 25 min moderate complexity Subjective: Nursing Report: Patient was visible on unit, no chemical restraints or PRNs. Patient taking medication. CC: "I have a sleep disorder" Patient was seen and evaluated in his room. He said that he is fine with meeting with the ACT team. During the meeting he became defensive and said that everyone is against him and that he doesn't need help from anyone. He said that he will take oral medications but refused to take a injection. Per nursing no behavioral issues or overnight events reported overnight. Objective - Appearance Appearance: Healthy Appearing Dysmorphic Features: No Hygiene: Normal Grooming: Fairly Well Kept - Behavior Psychomotor Activities: Normal Exhibits Abnormal Movement: No - Attitude and Relatedness Attitude and Relatedness: Superficially Cooperative Eye Contact: Good - Speech Quality: Unpressured Latencies: Normal Quantity: Appropriate - Mood Patient's Decription of Mood: "Fine" - Affect Observed Affect: Non-labile Affect Consistent with: Euthymia - Thought Process Patient's Thought Process: Loose Associations Thought Content: No Passive Wish, No Suicidal Planning, No Homicidal Ideation, No Paranoid Ideation - Sensorium Experiencing Hallucinations: Yes Type of Hallucinations: Auditory: Yes - improved - Level of Consciousness Level of Consciousness: Alert Orientation: Yes Intact, Yes Orientated to Time, Yes Orientated to Place, Yes Orientated to Person - Impulse Control Impulse Control: Tenuous - Insight and Judgement Insight and Judgement: Fair - Group Participation Particating in Group Activities: No - Medication Management Medication Management Adherence: Yes Assessment - Assessment Clinical Impression: 52 year old Male with a history of schizoaffective disorder on court order treatment. He has been compliant with oral medications. Plan - Plan Treatment Plan: Name: HILLARY SANCHEZ Birthdate: 1965 [id number] Plan #The patient requires inpatient admission at this time to assure safety, receive treatment and work toward stabilization. #Continue Risperdal 4mg BID M tab at night (Court ordered). #Continue metformin 500mg PO daily (Not court ordered). # Plan for invega GONZALES if patient doesnt show improvement, #Plan for a state hospital referral. #Goals before discharge include: Increase medication compliance. The risks, benefits, and alternative treatment options were discussed as well as of the risks of refusing treatment. When comparing the risks of treatment with the dangers of current clinical presentation. The benefits of treatment outweigh the treatment risks at this time. Vital Signs Temp Pulse Resp BP Pulse Ox 98.6 F 80 16 123/81 100 05/20/18 07:36 05/20/18 07:36 05/20/18 07:36 05/20/18 07:36 05/20/18 07:36 Sodium 137 mmol/L (135-145) 05/06/18 07:52 Potassium 4.4 mmol/L (3.5-5.0) 05/06/18 07:52 BUN 13 mg/dL (6-24) 05/06/18 07:52 Creatinine 0.84 mg/dL (0.67-1.17) 05/06/18 07:52 Hemoglobin A1c 6.4 % (4.0-5.6) H 05/06/18 07:52 Calcium 9.6 mg/dL (8.6-10.3) 05/06/18 07:52 AST 16 U/L (13-39) 05/06/18 07:52 ALT 11 U/L (7-52) 05/06/18 07:52 Triglycerides 70 mg/dL 05/06/18 07:52 Cholesterol 173 mg/dL 05/06/18 07:52 LDL Cholesterol 95 mg/dL 05/06/18 07:52 Acetaminophen (Tylenol Tab*) 650 mg PO Q4H PRN PRN Reason: for pain; or Temp >101 F Al Hydrox/Mg Hydrox/Simethicone (Maalox Plus*) 30 ml PO Q4H PRN PRN Reason: INDIGESTION Diphenhydramine HCl (Benadryl Po*) 50 mg PO Q6H PRN PRN Reason: AGITATION Haloperidol (Haldol Tab*) 5 mg PO Q6H PRN PRN Reason: AGITATION Lorazepam (Ativan Tab(*)) 2 mg PO Q6H PRN PRN Reason: ANXIETY Metformin HCl (Glucophage*) 500 mg PO DAILY [facility] Last Admin: 05/20/18 11:34 Dose: Not Given Risperidone (Risperdal-M Tab *) 4 mg PO 2100 [facility]; Protocol Last Admin: 05/19/18 21:19 Dose: 4 mg Continued Medication Management: Continue Outpt Medication Medications: Current Medications Acetaminophen (Tylenol Tab*) 650 mg PO Q4H PRN PRN Reason: for pain; or Temp >101 F Al Hydrox/Mg Hydrox/Simethicone (Maalox Plus*) 30 ml PO Q4H PRN PRN Reason: INDIGESTION Diphenhydramine HCl (Benadryl Po*) 50 mg PO Q6H PRN PRN Reason: AGITATION Haloperidol (Haldol Tab*) 5 mg PO Q6H PRN PRN Reason: AGITATION Lorazepam (Ativan Tab(*)) 2 mg PO Q6H PRN PRN Reason: ANXIETY Metformin HCl (Glucophage*) 500 mg PO DAILY [facility] Last Admin: 05/19/18 10:16 Dose: Not Given Risperidone (Risperdal-M Tab *) 4 mg PO 2100 [facility]; Protocol Last Admin: 05/19/18 21:19 Dose: 4 mg - Discharge Plan Discharge Plan: Inpatient Hospitalization
[2018-05-20] MEDS: metFORMIN* 500 MG TAB PO SCH (11:34)
[2018-05-20] MEDS: risperiDONE-M * 1 MG TAB.ORADIS PO SCH (21:11)
[2018-05-21] MEDS: metFORMIN* 500 MG TAB PO SCH (09:19)
--- NOTE | 2018-05-21 11:18 | PN ---
Subjective - Subjective Date of Service: 05/21/18 Service Type: [id number] Hosp care 35 min high complexity Subjective: Nursing Report: Patient was visible on unit, no chemical restraints or PRNs. Patient taking medication. CC: "I have been sleeping " Patient was seen and evaluated in his room. He said that he will think about going [facility] or receiving long acting injection. Per nursing no behavioral issues or overnight events reported overnight. Patient was up this morning and ate breakfast. He reported a improvement of sleep. Objective - Appearance Dysmorphic Features: No Hygiene: Normal Grooming: Fairly Well Kept - Behavior Psychomotor Activities: Normal Exhibits Abnormal Movement: No - Attitude and Relatedness Attitude and Relatedness: Cooperative Eye Contact: Fair - Speech Quality: Pressured Latencies: Short Quantity: Copious - Mood Patient's Decription of Mood: "Fine" - Affect Observed Affect: Labile Affect Consistent with: Dysphoria - Thought Process Patient's Thought Process: Over Inclusive Thought Content: Yes Paranoid Ideation, No Passive Wish, No Suicidal Planning, No Homicidal Ideation - Sensorium Experiencing Hallucinations: Yes Type of Hallucinations: Visual: No, Auditory: Yes, Command: No - Level of Consciousness Level of Consciousness: Alert Orientation: Yes Intact, Yes Orientated to Time, Yes Orientated to Place, Yes Orientated to Person - Impulse Control Impulse Control: Impaired - Insight and Judgement Insight and Judgement: Impaired - Group Participation Particating in Group Activities: No - Medication Management Medication Management Adherence: Yes Assessment - Assessment Clinical Impression: 52 year old Male with a history of schizoaffective disorder on court order treatment. He has been compliant with oral medications. Plan - Plan Treatment Plan: Name: HILLARY SANCHEZ Birthdate: 1965 [id number] Plan #The patient requires inpatient admission at this time to assure safety, receive treatment and work toward stabilization. #Continue Risperdal 4mg BID M tab at night (Court ordered). #Continue metformin 500mg PO daily (Not court ordered). # Patient refusing GONZALES and refusing to work with the ACT team #Plan for a state hospital referral #Goals before discharge include: Increase medication compliance. The risks, benefits, and alternative treatment options were discussed as well as of the risks of refusing treatment. When comparing the risks of treatment with the dangers of current clinical presentation. The benefits of treatment outweigh the treatment risks at this time. Vital Signs Temp Pulse Resp BP Pulse Ox 98.1 F 76 16 134/84 100 05/21/18 07:27 05/21/18 07:27 05/21/18 07:27 05/21/18 07:27 05/21/18 07:27 Sodium 137 mmol/L (135-145) 05/06/18 07:52 Potassium 4.4 mmol/L (3.5-5.0) 05/06/18 07:52 BUN 13 mg/dL (6-24) 05/06/18 07:52 Creatinine 0.84 mg/dL (0.67-1.17) 05/06/18 07:52 Hemoglobin A1c 6.4 % (4.0-5.6) H 05/06/18 07:52 Calcium 9.6 mg/dL (8.6-10.3) 05/06/18 07:52 AST 16 U/L (13-39) 05/06/18 07:52 ALT 11 U/L (7-52) 05/06/18 07:52 Triglycerides 70 mg/dL 05/06/18 07:52 Cholesterol 173 mg/dL 05/06/18 07:52 LDL Cholesterol 95 mg/dL 05/06/18 07:52 Acetaminophen (Tylenol Tab*) 650 mg PO Q4H PRN PRN Reason: for pain; or Temp >101 F Al Hydrox/Mg Hydrox/Simethicone (Maalox Plus*) 30 ml PO Q4H PRN PRN Reason: INDIGESTION Diphenhydramine HCl (Benadryl Po*) 50 mg PO Q6H PRN PRN Reason: AGITATION Haloperidol (Haldol Tab*) 5 mg PO Q6H PRN PRN Reason: AGITATION Lorazepam (Ativan Tab(*)) 2 mg PO Q6H PRN PRN Reason: ANXIETY Metformin HCl (Glucophage*) 500 mg PO DAILY [facility] Last Admin: 05/21/18 09:19 Dose: Not Given Risperidone (Risperdal-M Tab *) 4 mg PO 2100 [facility]; Protocol Continued Medication Management: Continue Outpt Medication Medications: Current Medications Acetaminophen (Tylenol Tab*) 650 mg PO Q4H PRN PRN Reason: for pain; or Temp >101 F Al Hydrox/Mg Hydrox/Simethicone (Maalox Plus*) 30 ml PO Q4H PRN PRN Reason: INDIGESTION Diphenhydramine HCl (Benadryl Po*) 50 mg PO Q6H PRN PRN Reason: AGITATION Haloperidol (Haldol Tab*) 5 mg PO Q6H PRN PRN Reason: AGITATION Lorazepam (Ativan Tab(*)) 2 mg PO Q6H PRN PRN Reason: ANXIETY Metformin HCl (Glucophage*) 500 mg PO DAILY [facility] Last Admin: 05/21/18 09:19 Dose: Not Given Risperidone (Risperdal-M Tab *) 4 mg PO 2100 [facility]; Protocol - Discharge Plan Discharge Plan: Inpatient Hospitalization
[2018-05-21] MEDS ORDERED: Benztropine TAB* 1 MG PO PRN (16:20)
[2018-05-21] MEDS ORDERED: Haloperidol Decanoate* 50 MG/ML AMP IM SCH ×2 (17:00)
[2018-05-21] MEDS ORDERED: risperiDONE-M * 1 MG TAB.ORADIS PO SCH ×2 (21:00)
[2018-05-22] MEDS ORDERED: Haloperidol TAB* 5 MG PO SCH (09:00)
[2018-05-22] MEDS: metFORMIN* 500 MG TAB PO SCH (09:20)
[2018-05-22] MEDS ORDERED: Haloperidol Decanoate* 50 MG/ML AMP IM SCH (13:00)
[2018-05-23] MEDS: risperiDONE-M * 1 MG TAB.ORADIS PO SCH ×2 (00:07→20:21)
[2018-05-23] MEDS: metFORMIN* 500 MG TAB PO SCH (08:47)
[2018-05-24] MEDS ORDERED: risperiDONE CONSTA* 50 MG IM ONE (08:21)
[2018-05-24] MEDS ORDERED: Paliperidone SUSTENNA* 234 MG/1.5 ML IM ONE (10:24)
[2018-05-24] MEDS: metFORMIN* 500 MG TAB PO SCH (11:37)
--- NOTE | 2018-05-24 12:32 | PN ---
Subjective - Subjective Date of Service: 05/24/18 Service Type: [id number] Hosp care 35 min high complexity Subjective: Nursing Report: Patient was visible on unit, no chemical restraints or PRNs. Slept overnight without incident. Patent is in his room responding to internal stimuli. CC: " I will get the shot" Patient was seen and evaluated in his room. He said that he will get the shot and work with the act team. The patient received the long acting injection today without complication. The patient was heard laughing to himself in his room. He reported having an adequate appetite and sleep.He reported that he gets better sleep when he takes medications. Patient reported that he is tolerating medications without side effects. Objective - Appearance Dysmorphic Features: No Hygiene: Normal Grooming: Well Kept - Behavior Psychomotor Activities: Normal Exhibits Abnormal Movement: No - Attitude and Relatedness Attitude and Relatedness: Cooperative Eye Contact: Fair - Speech Quality: Pressured Latencies: Short Quantity: Copious - Mood Patient's Decription of Mood: "Okay" - Affect Observed Affect: Euphoric Affect Consistent with: Euphoria - Thought Process Patient's Thought Process: Disorganized Thought Content: Yes Paranoid Ideation, No Passive Wish, No Suicidal Planning, No Homicidal Ideation - Sensorium Experiencing Hallucinations: Yes Type of Hallucinations: Visual: No, Auditory: Yes, Command: No - Level of Consciousness Level of Consciousness: Alert Orientation: Yes Intact, Yes Orientated to Time, Yes Orientated to Place, Yes Orientated to Person - Impulse Control Impulse Control: Tenuous - Insight and Judgement Insight and Judgement: Fair - Group Participation Particating in Group Activities: No - Medication Management Medication Management Adherence: Partial Assessment - Assessment Merits Inpatient Hospitalization: For Immediate Safety, For Stabilization Clinical Impression: 52 year old Male with a history of schizoaffective disorder on court order treatment. Plan - Plan Treatment Plan: Name: HILLARY SANCHEZ Birthdate: 1965 [id number] Plan #The patient requires inpatient admission at this time to assure safety, receive treatment and work toward stabilization. # Can d/c risperdal # Will meet with ACT team tomorrow or Thursday. #Patient received invega 234mg long acting injection without complication in 4- 8 days will receive 156mg #Goals before discharge include: Decrease internal stimuli and improve frustration tolerance The risks, benefits, and alternative treatment options were discussed as well as of the risks of refusing treatment. When comparing the risks of treatment with the dangers of current clinical presentation. The benefits of treatment outweigh the treatment risks at this time. Continued Medication Management: Continue Outpt Medication Medications: Current Medications Acetaminophen (Tylenol Tab*) 650 mg PO Q4H PRN PRN Reason: for pain; or Temp >101 F Al Hydrox/Mg Hydrox/Simethicone (Maalox Plus*) 30 ml PO Q4H PRN PRN Reason: INDIGESTION Benztropine Mesylate (Cogentin Tab*) 1 mg PO Q12H PRN PRN Reason: BEHAVIOR Diphenhydramine HCl (Benadryl Po*) 50 mg PO Q6H PRN PRN Reason: AGITATION Haloperidol (Haldol Tab*) 5 mg PO Q6H PRN PRN Reason: AGITATION Metformin HCl (Glucophage*) 500 mg PO DAILY [facility] Last Admin: 05/24/18 11:37 Dose: Not Given Risperidone (Risperdal-M Tab *) 4 mg PO BEDTIME [facility]; Protocol Last Admin: 05/23/18 20:21 Dose: Not Given - Discharge Plan Discharge Plan: Inpatient Hospitalization
[2018-05-24] MEDS ORDERED: LORazepam TAB(*) 1 MG PO PRN (22:01)
--- NOTE | 2018-05-25 08:50 | PN ---
Subjective - Subjective Date of Service: 05/25/18 Service Type: [id number] Hosp care 35 min high complexity Subjective: Nursing Report: Patient was visible on unit, no chemical restraints or PRNs. Slept overnight without incident. CC: " Good " Patient was seen and evaluated in the common room eating his breakfast. He said that he plans on working with the ACT team and will not get upset if they ask him questions about working with them. The patient reported having an adequate appetite and sleep.He said that he got a full nights rest overnight and said that his sleep has remarkably improved. Patient reported that he is tolerating medications without side effects. Objective - Appearance Appearance: Healthy Appearing Dysmorphic Features: No Hygiene: Normal Grooming: Well Kept - Behavior Psychomotor Activities: Normal Exhibits Abnormal Movement: No - Attitude and Relatedness Attitude and Relatedness: Cooperative Eye Contact: Fair - Speech Quality: Pressured Latencies: Short Quantity: Copious - Mood Patient's Decription of Mood: "Fine" - Affect Observed Affect: Expansive Affect Consistent with: Euthymia - Thought Process Patient's Thought Process: Goal Directed, Tangential Thought Content: No Passive Wish, No Suicidal Planning, No Homicidal Ideation, No Paranoid Ideation - Sensorium Experiencing Hallucinations: Yes Type of Hallucinations: Auditory: Yes - Level of Consciousness Level of Consciousness: Alert Orientation: Yes Intact, Yes Orientated to Time, Yes Orientated to Place, Yes Orientated to Person - Impulse Control Impulse Control: Tenuous - Insight and Judgement Insight and Judgement: Fair - Group Participation Particating in Group Activities: No - Medication Management Medication Management Adherence: Yes Assessment - Assessment Clinical Impression: 52 year old Male with a history of schizoaffective disorder on court order treatment. Plan - Plan Treatment Plan: Name: HILLARY SANCHEZ Birthdate: 1965 [id number] Plan #The patient requires inpatient admission at this time to assure safety, receive treatment and work toward stabilization. # Will meet with ACT team tomorrow or Thursday. #Patient received invega 234mg long acting injection without complication in 4- 8 days will receive 156mg #Goals before discharge include: Decrease internal stimuli and improve frustration tolerance. The risks, benefits, and alternative treatment options were discussed as well as of the risks of refusing treatment. When comparing the risks of treatment with the dangers of current clinical presentation. The benefits of treatment outweigh the treatment risks at this time. Continued Medication Management: Continue Outpt Medication Medications: Current Medications Acetaminophen (Tylenol Tab*) 650 mg PO Q4H PRN PRN Reason: for pain; or Temp >101 F Al Hydrox/Mg Hydrox/Simethicone (Maalox Plus*) 30 ml PO Q4H PRN PRN Reason: INDIGESTION Benztropine Mesylate (Cogentin Tab*) 1 mg PO Q12H PRN PRN Reason: BEHAVIOR Diphenhydramine HCl (Benadryl Po*) 50 mg PO Q6H PRN PRN Reason: AGITATION Haloperidol (Haldol Tab*) 5 mg PO Q6H PRN PRN Reason: AGITATION Lorazepam (Ativan Tab(*)) 2 mg PO Q6H PRN PRN Reason: ANXIETY Metformin HCl (Glucophage*) 500 mg PO DAILY [facility] Last Admin: 05/24/18 11:37 Dose: Not Given - Discharge Plan Discharge Plan: Inpatient Hospitalization
[2018-05-25] MEDS: metFORMIN* 500 MG TAB PO SCH (11:03)
[2018-05-26] MEDS: metFORMIN* 500 MG TAB PO SCH (09:11)
--- NOTE | 2018-05-26 14:50 | PN ---
Subjective - Subjective Date of Service: 05/26/18 Service Type: [id number] Hosp care 35 min high complexity Subjective: Nursing Report: Patient was visible on unit, no chemical restraints or PRNs. Slept overnight without incident. CC: " I am fine " Patient was seen and evaluated in the common room. He was seen interacting with peers. The patient reported having an adequate appetite and sleep. Patient reported that he is tolerating medications without side effects. Objective - Appearance Appearance: Healthy Appearing Dysmorphic Features: No Hygiene: Normal Grooming: Fairly Well Kept - Behavior Psychomotor Activities: Normal Exhibits Abnormal Movement: No - Attitude and Relatedness Attitude and Relatedness: Cooperative Eye Contact: Fair - Speech Quality: Pressured Latencies: Short Quantity: Copious - Mood Patient's Decription of Mood: "Fine" - Affect Observed Affect: Expansive Affect Consistent with: Euthymia - Thought Process Patient's Thought Process: Tangential Thought Content: No Passive Wish, No Suicidal Planning, No Homicidal Ideation, No Paranoid Ideation - Sensorium Experiencing Hallucinations: Yes Type of Hallucinations: Visual: No, Auditory: Yes, Command: No - Level of Consciousness Level of Consciousness: Alert Orientation: Yes Intact, Yes Orientated to Time, Yes Orientated to Place, Yes Orientated to Person - Impulse Control Impulse Control: Tenuous - Insight and Judgement Insight and Judgement: Fair - Group Participation Particating in Group Activities: No - Medication Management Medication Management Adherence: Yes Assessment - Assessment Clinical Impression: 52 year old Male with a history of schizoaffective disorder on court order treatment. Plan - Plan Treatment Plan: Name: HILLARY SANCHEZ Birthdate: 1965 [id number] Plan #The patient requires inpatient admission at this time to assure safety, receive treatment and work toward stabilization. #Patient plans to receive [id number] GONZALES on Thursday. #Goals before discharge include: Decrease internal stimuli and improve frustration tolerance. ACT team plans to come Thursday with plan to discharge. The risks, benefits, and alternative treatment options were discussed as well as of the risks of refusing treatment. When comparing the risks of treatment with the dangers of current clinical presentation. The benefits of treatment outweigh the treatment risks at this time. Continued Medication Management: Continue Outpt Medication Medications: Current Medications Acetaminophen (Tylenol Tab*) 650 mg PO Q4H PRN PRN Reason: for pain; or Temp >101 F Al Hydrox/Mg Hydrox/Simethicone (Maalox Plus*) 30 ml PO Q4H PRN PRN Reason: INDIGESTION Benztropine Mesylate (Cogentin Tab*) 1 mg PO Q12H PRN PRN Reason: BEHAVIOR Diphenhydramine HCl (Benadryl Po*) 50 mg PO Q6H PRN PRN Reason: AGITATION Haloperidol (Haldol Tab*) 5 mg PO Q6H PRN PRN Reason: AGITATION Lorazepam (Ativan Tab(*)) 2 mg PO Q6H PRN PRN Reason: ANXIETY Metformin HCl (Glucophage*) 500 mg PO DAILY [facility] Last Admin: 05/26/18 09:11 Dose: Not Given - Discharge Plan Discharge Plan: Inpatient Hospitalization
[2018-05-27] MEDS: metFORMIN* 500 MG TAB PO SCH (09:32)
--- NOTE | 2018-05-27 12:32 | PN ---
Subjective - Subjective Date of Service: 05/27/18 Service Type: [id number] Hosp care 35 min high complexity Subjective: Nursing Report: Patient was visible on unit, no chemical restraints or PRNs. Slept overnight without incident. CC: "I am fine" The patient reported he feels safe on the unit and is interacting with peers. He reported having an adequate appetite and sleep. Per nursing no behavioral issues or overnight events reported. Patient reported that he is tolerating medications without side effects. He denied suicidal ideation, intent or plan. He denied homicidal ideation intent or plan. Objective - Appearance Dysmorphic Features: No Hygiene: Normal Grooming: Well Kept - Behavior Psychomotor Activities: Normal Exhibits Abnormal Movement: No - Attitude and Relatedness Attitude and Relatedness: Cooperative Eye Contact: Fair - Speech Quality: Pressured Latencies: Short Quantity: Copious - Mood Patient's Decription of Mood: "Fine" - Affect Observed Affect: Expansive Affect Consistent with: Euthymia - Thought Process Patient's Thought Process: Loose Associations Thought Content: No Passive Wish, No Suicidal Planning, No Homicidal Ideation, No Paranoid Ideation - Sensorium Experiencing Hallucinations: Yes Type of Hallucinations: Visual: No, Auditory: Yes, Command: No - Level of Consciousness Level of Consciousness: Alert Orientation: Yes Intact, Yes Orientated to Time, Yes Orientated to Place, Yes Orientated to Person - Impulse Control Impulse Control: Tenuous - Insight and Judgement Insight and Judgement: Fair - Group Participation Particating in Group Activities: No - Medication Management Medication Management Adherence: Yes Assessment - Assessment Clinical Impression: 52 year old Male with a history of schizoaffective disorder on court order treatment. Plan - Plan Treatment Plan: Name: HILLARY SANCHEZ Birthdate: 1965 [id number] Plan #The patient requires inpatient admission at this time to assure safety, receive treatment and work toward stabilization. #Patient plans to receive [id number] GONZALES on Thursday. #Goals before discharge include: Decrease internal stimuli and improve frustration tolerance. ACT team plans to come Thursday with plan to discharge. The risks, benefits, and alternative treatment options were discussed as well as of the risks of refusing treatment. When comparing the risks of treatment with the dangers of current clinical presentation. The benefits of treatment outweigh the treatment risks at this time. Vital Signs 05/26/18 05/27/18 05/27/18 14:13 07:44 14:00 Temperature 97.9 F Pulse Rate 81 Respiratory 16 16 16 Rate Blood Pressure 126/78 (mmHg) O2 Sat by Pulse 100 Oximetry Sodium 137 mmol/L (135-145) 05/06/18 07:52 Potassium 4.4 mmol/L (3.5-5.0) 05/06/18 07:52 BUN 13 mg/dL (6-24) 05/06/18 07:52 Creatinine 0.84 mg/dL (0.67-1.17) 05/06/18 07:52 Hemoglobin A1c 6.4 % (4.0-5.6) H 05/06/18 07:52 Calcium 9.6 mg/dL (8.6-10.3) 05/06/18 07:52 AST 16 U/L (13-39) 05/06/18 07:52 ALT 11 U/L (7-52) 05/06/18 07:52 Triglycerides 70 mg/dL 05/06/18 07:52 Cholesterol 173 mg/dL 05/06/18 07:52 LDL Cholesterol 95 mg/dL 05/06/18 07:52 Continued Medication Management: Continue Outpt Medication Medications: Current Medications Acetaminophen (Tylenol Tab*) 650 mg PO Q4H PRN PRN Reason: for pain; or Temp >101 F Al Hydrox/Mg Hydrox/Simethicone (Maalox Plus*) 30 ml PO Q4H PRN PRN Reason: INDIGESTION Benztropine Mesylate (Cogentin Tab*) 1 mg PO Q12H PRN PRN Reason: BEHAVIOR Diphenhydramine HCl (Benadryl Po*) 50 mg PO Q6H PRN PRN Reason: AGITATION Haloperidol (Haldol Tab*) 5 mg PO Q6H PRN PRN Reason: AGITATION Lorazepam (Ativan Tab(*)) 2 mg PO Q6H PRN PRN Reason: ANXIETY Metformin HCl (Glucophage*) 500 mg PO DAILY [facility] Last Admin: 05/27/18 09:32 Dose: Not Given Paliperidone Palmitate (Invega Sustenna*) 156 mg IM ONCE ONE Stop: 05/28/18 09:01 - Discharge Plan Discharge Plan: Inpatient Hospitalization
[2018-05-28] MEDS ORDERED: Paliperidone SUSTENNA* 156 MG/1 ML IM ONE (09:00)
[2018-05-28] MEDS: metFORMIN* 500 MG TAB PO SCH (09:45)
[2018-05-28 10:13] VITALS: BP 142/80
--- NOTE | 2018-05-28 11:40 | DS ---
Subjective - Subjective Service Types: [address] [facility] Day Mgmt complex over 30 min Discharge Date: 05/28/18 Subjective: CC " I was nice to walk outside" Patient met with ACT team and they are willing to work with him again. He said he is ready to go home and plans to buy a bed to get better sleep. Patient received invega injection without complication today. He denied suicidal ideation, intent or plan. He denied homicidal ideation, intent or plan. Justification for admission: Immediate Safety. CC " You are so dumb" The patient was brought to [facility] by police after threatening staff from ACT team, screaming he is the son of God. Denied access to firearms and or stockpiles of medications. He said that he got into a argument with a lady at [facility] ACT team. He reported that he doesnt sleep and doesnt want to be bothered by people. He reports that women is trying to make false charges against him and that society has been against him and used and abused him. He reports people after him out to get him. He reported that ikedol killed his sister and when asked about her diagnosis screamed you are so dumb and do not listen, and stormed into his room refusing to answer any further questions. A psychiatric review of systems was unable to be performed due to lack of participation of the patient. PAST PSYCHIATRIC HISTORY: Prior Diagnosis : Schizophrenia History of past Psychiatric Hospitalizations: Multiple hospitalizations last admission in 2016. Prior state hospitalization to [facility] in 2014 History of past suicide/homicide attempts : Denied past suicide attempts. Denied past homicidal incidents. Outpatient follow-up: [facility] team. Dr. Velasco Medications: Past trials of medications include Haldol 10mg qhs and 5mg qam. Cogentin and Haldol deconate 150mg q4 weeks. Risperdal M tab 2mg qam and 4mg bedtime. Has not taken medications in 2 years. FAMILY HISTORY: - Suicide: Denied family history of suicide. - Mental illness: Denied per patient his sister was taking haldol and ( unconfirmed) - Substance abuse: Denied substance abuse among family members. SUBSTANCE ABUSE HISTORY: Denied using alcohol, tobacco, heroin and cocaine other illicit substances in the last year. Denied abusing pills not prescribed . Reported using crack cocaine in the past with the last use 7 years ago. SOCIAL HISTORY: Patient refused to answer questions about childhood and prior employment - Education: Some college - Living situation: Lives in apartment alone - Relationship: Single - Legal history: Reports pending charges for assault PAST MEDICAL HISTORY: Denied heart disease, cancer and/ or other medical conditions. Laboratory results show pre diabetes. - Allergies: Denied drug or other allergies. Physical Exam: Please see ED note Mental Status Exam on Admission APPEARANCE : 52 year old who appears stated age. Patient is not malodourous, and appears to have fair hygiene and grooming. BEHAVIOR: Irritable EYE CONTACT: Fair PSYCHOMOTOR ACTIVITY: No psychomotor agitation or retardation. MOVEMENTS: No abnormal movements observed. SPEECH : Pressured MOOD : "Mad " AFFECT : Agitated THOUGHT PROCESS: Illogical,and disorganized THOUGHT CONTENT: Paranoid delusions PERCEPTION: Doesnt appear to be responding to internal cues. SUICIDALITY Denied suicidal ideation, intent or plan. HOMICIDALITY Denied homicidal ideation, intent or plan. ORIENTATION: Oriented to self, location, and time. Insight/judgment: Poor insight and judgment. Impulsive with low frustration tolerance Diagnosis on Admission: Schizoaffective disorder bipolar type Diagnosis on Discharge: Schizophrenia Condition at the time of discharge: At the time of discharge patient showed improvement of sleep and appetite. The patient was not a danger to self or others. The patient denied suicidal ideations , intent or plans. The patient denied homicidal targets, ideations, intents or plans. This patient participated in psychosocial rehabilitation and gained some insight into problems. The patient gained insight into mental illness, triggers, and treatment. The patient took medication as prescribed. The patient denied side effects of medication and objective signs of side effects were not evident. Therapy Resources were offered to the patient. Patient was given a supply of prescriptions at the time of discharge. The patient plans to attend follow up care with the follow up arrangements that were discussed and put in place. Patient was asked to keep appointments as scheduled, take medication as prescribed, have routine follow up care with their primary care physician and refrain from any use of alcohol or drugs. Objective - Appearance Appearance: Healthy Appearing Dysmorphic Features: No Hygiene: Normal Grooming: Well Kept - Behavior Psychomotor Activities: Normal Exhibits Abnormal Movement: No - Attitude and Relatedness Attitude and Relatedness: Cooperative Eye Contact: Fair - Speech Quality: Unpressured Latencies: Normal Quantity: Appropriate - Mood Patient's Decription of Mood: "Fine" - Affect Observed Affect: Non-labile Affect Consistent with: Euthymia - Thought Process Patient's Thought Process: Goal Directed Thought Content: No Passive Wish, No Suicidal Planning, No Homicidal Ideation, No Paranoid Ideation - Sensorium Experiencing Hallucinations: No, Sensorium is Clear Type of Hallucinations: Visual: No, Auditory: No, Command: No - Level of Consciousness Level of Consciousness: Alert Orientation: Yes Intact, Yes Orientated to Time, Yes Orientated to Place, Yes Orientated to Person - Impulse Control Impulse Control: Intact - Insight and Judgement Insight and Judgement: Good - Group Participation Particating in Group Activities: Yes - Medication Management Medication Management Adherence: Yes Treatment Course & Assessment Clinical Course & Impression: 52 year old Male with a history of schizoaffective disorder on court order treatment. Hospital course part A: 52 year old male with a history of schizophrenia came to the [facility] for psychiatric stabilization. Hospital course part B: Labs ordered included CBC, CMP, UDS, TSH, HBA1c, TSH, Toxicology screen, Urine analysis, and lipid profile. Labs were reviewed and did not require the need for further evaluation. Vital signs were monitored during the course of admission.EKG ordered for risk of QT prolongation of antipsychotic medication. EKG was reviewed and no abnormal findings were present The patient was admitted to the adult behavioral unit and placed on 15 minute check for safety. At a later time the patient was on Q30 minute observation and staff pass privileges. With those limits being extended , there were no occurrence of behavioral incidents. The patient did well on the unit and went to groups. Interacted with peers had adequate sleep and regular appetite. Tolerated medication changes without side effects. Group therapy and services were offered. The risks, benefits, and alternative treatment options were discussed as well as of the risks of refusing treatment. Treatment associated risks discussed . After this discussion and an acknowledgement of this understanding , made the decision for the current type of treatment. Follow up care appointments were put in place for follow up care within 7 days of discharge. He plans to follow up with the ACT team Patient presents with a broader range of affect, and the absence of depressed mood, delusions, perceptual disturbances and or suicidal ideation. Overall, the patient responded well to inpatient treatment as evidenced by their report of strengthening of coping mechanisms , reduced distress, and more positive outlook on circumstances. Of note there was an improvement psychotic symptoms. The patient expressed readiness for discharge home. Patient instructed to immediately call 911 should any safety concerns arise. AIMS was performed and insignificant for signs of TD. The patient was advised of the 24 hour / 7 days a week availability of the emergency room and to call 911 in the event of becoming suicidal and/ or homicidal and for all other emergencies. The patient was informed of the contact information for [facility], Suicide Prevention and Crisis Services, National Suicide Prevention Lifeline, [facility], Alcoholics Anonymous, and [facility]. Medications started included risperdal 2mg BID and then 4mg at bedtime. Over the course of treatment he was found in his room talking to himself. After treatment he was no longer showing signs of responding to internal stimuli and received better sleep. A treatment over objection took place and ruled in favor of treatment. He received long acting injection of invega 234mg on and 156mg on 05/28/18 without complications. Consults included to medicine for borderline diabetes and patient refused treatment of metformin 500mg daily. Improvements in patient from the time of admission include: Improved affect, sleep and decrease psychosis. Patient no longer showing signs of psychosis and is in agreement with working with the ACT team. Risk factors: Single, chronic history of mental illness. Protective factors: No prior history of suicide attempt. No history of service, currently no feelings of hopelessness, not in a occupation of social isolation, doesnt have multiple medical conditions, no family history of suicide, doesnt have access to firearms. Doesnt have command hallucinations and or psychotic features at this time. No current history of substance abuse. No current history of alcohol abuse. Currently future orientated. Patient engaged in treatment and compliant with medication. Laboratory Results WBC 4.8 10^3/ul (3.5-10.8) 05/06/18 07:52 RBC 5.32 10^6/ul (4.00-5.40) 05/06/18 07:52 Hgb 12.3 g/dl (14.0-18.0) L 05/06/18 07:52 Hct 40 % (42-52) L 05/06/18 07:52 MCV 75 fL (80-94) L 05/06/18 07:52 MCH 23 pg (27-31) L 05/06/18 07:52 MCHC 31 g/dl (31-36) 05/06/18 07:52 RDW 15 % (10.5-15) 05/06/18 07:52 Plt Count 279 10^3/ul (150-450) 05/06/18 07:52 MPV 8.3 fL (7.4-10.4) 05/06/18 07:52 Neut % (Auto) 41.2 % 05/06/18 07:52 Lymph % (Auto) 45.0 % 05/06/18 07:52 [place] % (Auto) 10.8 % 05/06/18 07:52 Eos % (Auto) 2.2 % 05/06/18 07:52 Baso % (Auto) 0.8 % 05/06/18 07:52 Absolute Neuts (auto) 2.0 10^3/ul (1.5-7.7) 05/06/18 07:52 Absolute Lymphs (auto) 2.1 10^3/ul (1.0-4.8) 05/06/18 07:52 Absolute Monos (auto) 0.5 10^3/ul (0-0.8) 05/06/18 07:52 Absolute Eos (auto) 0.1 10^3/ul (0-0.6) 05/06/18 07:52 Absolute Basos (auto) 0 10^3/ul (0-0.2) 05/06/18 07:52 Absolute Nucleated RBC 0 10^3/ul 05/06/18 07:52 Nucleated RBC % 0.1 05/06/18 07:52 Sodium 137 mmol/L (135-145) 05/06/18 07:52 Potassium 4.4 mmol/L (3.5-5.0) 05/06/18 07:52 Chloride 103 mmol/L (101-111) 05/06/18 07:52 Carbon Dioxide 30 mmol/L (22-32) 05/06/18 07:52 Anion Gap 4 mmol/L (2-11) 05/06/18 07:52 BUN 13 mg/dL (6-24) 05/06/18 07:52 Creatinine 0.84 mg/dL (0.67-1.17) 05/06/18 07:52 Est GFR ( Amer) 115.2 (>60) 05/06/18 07:52 Est GFR (Non-Af Amer) 95.2 (>60) 05/06/18 07:52 BUN/Creatinine Ratio 15.5 (8-20) 05/06/18 07:52 Glucose 97 mg/dL (70-100) 05/06/18 07:52 Hemoglobin A1c 6.4 % (4.0-5.6) H 05/06/18 07:52 Calcium 9.6 mg/dL (8.6-10.3) 05/06/18 07:52 Total Bilirubin 0.40 mg/dL (0.2-1.0) 05/06/18 07:52 AST 16 U/L (13-39) 05/06/18 07:52 ALT 11 U/L (7-52) 05/06/18 07:52 Alkaline Phosphatase 49 U/L (34-104) 05/06/18 07:52 Total Protein 7.6 g/dL (6.4-8.9) 05/06/18 07:52 Albumin 4.4 g/dL (3.2-5.2) 05/06/18 07:52 Globulin 3.2 g/dL (2-4) 05/06/18 07:52 Albumin/Globulin Ratio 1.4 (1-3) 05/06/18 07:52 Triglycerides 70 mg/dL 05/06/18 07:52 Cholesterol 173 mg/dL 05/06/18 07:52 LDL Cholesterol 95 mg/dL 05/06/18 07:52 HDL Cholesterol 64.1 mg/dL 05/06/18 07:52 TSH 1.41 mcIU/mL (0.34-5.60) 05/06/18 07:52 Urine Color Yellow 05/05/18 12:50 Urine Appearance Clear 05/05/18 12:50 Urine pH 6.0 (5-9) 05/05/18 12:50 Ur Specific [place] 1.036 (1.010-1.030) H 05/05/18 12:50 Urine Protein Negative (Negative) 05/05/18 12:50 Urine Ketones Negative (Negative) 05/05/18 12:50 Urine Blood Negative (Negative) 05/05/18 12:50 Urine Nitrate Negative (Negative) 05/05/18 12:50 Urine Bilirubin Negative (Negative) 05/05/18 12:50 Urine Urobilinogen Negative (Negative) 05/05/18 12:50 Ur Leukocyte Esterase Negative (Negative) 05/05/18 12:50 Urine Glucose Negative (Negative) 05/05/18 12:50 Urine Ascorbic Acid * (Negative) A 05/05/18 12:50 Urine Opiates Screen None detected (None Detect) 05/05/18 12:50 Ur Barbiturates Screen None detected (None Detect) 05/05/18 12:50 Ur Phencyclidine Scrn None detected (None Detect) 05/05/18 12:50 Ur Amphetamines Screen None detected (None Detect) 05/05/18 12:50 U Benzodiazepines Scrn None detected (None Detect) 05/05/18 12:50 Urine Cocaine Screen None detected (None Detect) 05/05/18 12:50 U Cannabinoids Screen None detected (None Detect) 05/05/18 12:50 Serum Alcohol < 10 mg/dL (<10) 05/06/18 07:52 Vital Signs Temp 98.4 F 05/28/18 08:43 Pulse 81 05/28/18 08:43 Resp 16 05/28/18 08:43 BP 142/80 05/28/18 08:43 Pulse Ox 100 05/28/18 08:43 Merits Inpatient Hospitalization: No Clear for Discharge: Adequate Clinical Respons Discharge Planning - Discharge Planning Discharge Plan: Outpatient Follow Up Outpatient Program: [facility] Recommendations for Continuing Care: Medication Management Medications: Current Medications Acetaminophen (Tylenol Tab*) 650 mg PO Q4H PRN PRN Reason: for pain; or Temp >101 F Al Hydrox/Mg Hydrox/Simethicone (Maalox Plus*) 30 ml PO Q4H PRN PRN Reason: INDIGESTION Benztropine Mesylate (Cogentin Tab*) 1 mg PO Q12H PRN PRN Reason: BEHAVIOR Diphenhydramine HCl (Benadryl Po*) 50 mg PO Q6H PRN PRN Reason: AGITATION Haloperidol (Haldol Tab*) 5 mg PO Q6H PRN PRN Reason: AGITATION Lorazepam (Ativan Tab(*)) 2 mg PO Q6H PRN PRN Reason: ANXIETY Metformin HCl (Glucophage*) 500 mg PO DAILY BETH Last Admin: 05/28/18 09:45 Dose: Not Given Discharge Planning: Prescriptions provided for discharge [x] Yes [] No Follow up care details as per social work arrangements. Patient response to discharge plan: [] eager for discharge [x] agreeable with discharge plan [] ambivalent about discharge [] disagrees with discharge today
== END 2018-05-28 14:00 | disposition home or self-care (01) | DRG 885 ==
LOC: ED 12:23 → BSU 17:27
PROVIDERS: ADMIT Psychiatry & Neurology Psychiatry; ATTEND Psychiatry & Neurology Psychiatry
PROC: GZHZZZZ Group Psychotherapy (ICD-10-PCS; principal; 2018-05-05)
DX: F25.0 Schizoaffective disorder, bipolar type (principal); E11.9 Type 2 diabetes mellitus without complications; Z83.3 Family history of diabetes mellitus; Z87.891 Personal history of nicotine dependence; Z91.14 Patient's other noncompliance with medication regimen; Z79.84 Long term (current) use of oral hypoglycemic drugs
CPT/HCPCS: 36415; 80053; 80061; 80307; 80320; 81003; 83036; 84443; 85025; 90853; 93005; 99222; 99232; 99233; 99238; 99284; A9270-GY; G0480; J1631; J2426